=== PATIENT | male | born 1965 | race Caucasian/White ===

== ENCOUNTER 2019-09-17 10:44 | Outpatient (NON) | payer OTHER, SELFPAY ==
[2019-09-18 14:16] LABS: SARS-CoV-2 RNA PCR Negative
== END 2019-09-17 10:45 ==
PROVIDERS: PCP Family Medicine; Visit Provider Family Medicine
DX: R05 Cough (principal); R06.02 Shortness of breath; Z20.828 Contact with and (suspected) exposure to other viral communicable diseases
CPT/HCPCS: 87635; C9803; U0003

== ENCOUNTER 2019-09-19 14:45 | Outpatient (CLI) | payer OTHER, SELFPAY ==
--- NOTE | ~2019-09-19 | XR_ITS ---
EXAMINATION: XR chest 2V DATE: 09/19/2019 14:56 INDICATION: Cough. TECHNIQUE: Frontal and lateral views of the chest were obtained. COMPARISON: Chest 2 views 05/03/2019, CT abdomen and pelvis 07/15/2009 FINDINGS: The chest demonstrates clear lungs without pneumonia, pleural effusion, or pneumothorax. Th e heart size is normal. IMPRESSION: 1. No acute cardiopulmonary disease. Reviewed, dictated and finalized at location A.
== END 2019-09-19 14:46 | disposition home or self-care (01) ==
LOC: ANHIMG 14:47
PROVIDERS: PCP Family Medicine; Visit Provider Family Medicine
DX: R05 Cough (principal)
CPT/HCPCS: 71046

== ENCOUNTER 2020-03-17 14:41 | Outpatient (CLI) | payer OTHER, SELFPAY ==
--- NOTE | ~2020-03-17 | XR_ITS ---
EXAMINATION: XR chest 2V 03/17/2020 14:58 INDICATION: Cough PROCEDURE: 2 view chest COMPARISON: 09/19/2019 FINDINGS: The lungs are clear. The cardiomediastinal silhouette is within normal limits. There are no pleural effusions. There is no pneumothorax suspected. IMPRESSION: 1: NO ACUTE CARDIOPULMONARY DISEASE. Reviewed, dictated and finalized at location A. 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
== END 2020-03-17 14:42 | disposition home or self-care (01) ==
LOC: ANHIMG 14:44
PROVIDERS: PCP Family Medicine; Visit Provider Family Medicine
DX: R05 Cough (principal)
CPT/HCPCS: 71046

== ENCOUNTER 2020-04-20 15:52 | Outpatient (CLI) | payer OTHER, SELFPAY ==
--- NOTE | ~2020-04-20 | XR_ITS ---
XR chest 2V DATE: 04/20/2020 16:11 INDICATION: Shortness of breath and cough for one week TECHNIQUE: PA and lateral views COMPARISON: 03/13/2020 PA and lateral chest FINDINGS: Normal heart size. No hilar or mediastinal enlargement. No pulmonary infiltrate or consolidation, pleural effusion or pulmonary vascular congestion or pneumo thorax. IMPRESSION: No active cardiopulmonary disease Reviewed, dictated and finalized at location A. GER OF INVESTIGATIONS
== END 2020-04-20 15:53 | disposition home or self-care (01) ==
LOC: ANHIMG 15:55
PROVIDERS: PCP Family Medicine; Visit Provider Family Medicine
DX: R06.02 Shortness of breath (principal)
CPT/HCPCS: 71046

== ENCOUNTER 2020-04-21 06:50 | Outpatient (NON) | payer OTHER, SELFPAY ==
[2020-04-21 18:45] LABS: SARS-CoV-2 RNA PCR Negative
== END 2020-04-21 06:51 ==
LOC: ANHCOVIDDT 06:51
PROVIDERS: PCP Family Medicine; Visit Provider Family Medicine
DX: R68.89 Other general symptoms and signs (principal); Z20.828 Contact with and (suspected) exposure to other viral communicable diseases
CPT/HCPCS: 87635; C9803; U0003

== ENCOUNTER 2020-06-19 16:27 | Outpatient (CLI) | payer OTHER, SELFPAY ==
--- NOTE | ~2020-06-19 | XR_ITS ---
XR chest 2V DATE: 06/19/2020 16:46 INDICATION: Cough TECHNIQUE: PA and lateral views COMPARISON: 04/12/2020 PA and lateral chest FINDINGS: Normal heart size. No hilar or mediastinal enlargement. Prominent discoid scar or atelectasis, left lower lobe. No pulmonary infiltrate or consolidation, pleural effusion or pulmonary vascular congestion or pneumo thorax is noted otherwise. IMPRESSION: Discoid atelectasis or scarring, left lower lobe; otherwise no active cardiopulmonary dis ease Reviewed, dictated and finalized at location A. 911 DISPATCHER IMPRESSION: Discoid atelectasis or scarring, left lower lobe; otherwise no acti ve cardiopulmonary disease
== END 2020-06-19 16:28 | disposition home or self-care (01) ==
PROVIDERS: PCP Family Medicine; Visit Provider Physician Assistant
DX: R05 Cough (principal); R91.8 Other nonspecific abnormal finding of lung field
CPT/HCPCS: 71046

== ENCOUNTER → 2021-07-12 09:31 | Outpatient (CLI) | payer OTHER, SELFPAY ==
[2021-07-12 10:57] LABS: SARS-CoV-2 RNA PCR Positive
== END ==
PROVIDERS: PCP Family Medicine; Visit Provider Physician Assistant
DX: U07.1 COVID-19 (principal)
CPT/HCPCS: C9803; U0003; U0005

== ENCOUNTER 2021-07-21 16:56 | Observation (INO) | payer OTHER, SELFPAY ==
--- NOTE | ~2021-07-21 | CT_ITS ---
EXAMINATION: CTA chest PE protocol DATE: 07/21/2021 17:55 INDICATION: Cough and shortness of breath. TECHNIQUE: Computed tomography angiography (CTA) of the chest was performed with 100 mL Omnipaque-350 intravenous contrast timed to evaluate the pulmonary arteries. Coronal maximum intensity projection 3D-reconstructions were created by the technologist. Automated exposure control and iterative reconst ruction technique were employed. The dose-length product was 665.14 mGy-cm. COMPARISON: CT abdomen and pelvis 07/15/2009 FINDINGS: There is mild atelectasis bilaterally. There is material in the bronchi in the lower lobes that may be mucous plugging or aspirated material. No pleural effusion. The heart size is normal. No pericardial effusion. There is no pulmonary embolus. There is a small sliding hiatal hernia. There is a 2.0 cm cyst in left kidney. There is mild bilateral gynecomastia. There is mild thoracic spondylos is. There are old healed left rib fractures. IMPRESSION: 1. No pulmonary embolus. Sensitivity is mildly decreased by motion artifact. 2. Small sliding hiatal hernia. Reviewed, dictated and finalized at location A.
[2021-07-21 16:59] VITALS: BP 140/70; PULSE 101; RESP 20; TEMP 36.8; O2SAT 93
--- NOTE | 2021-07-21 17:05 | ED.SYNCOPE ---
HPI - Syncope General Chief Complaint: Syncope Stated Complaint: COVID positive with cough Time Seen by Provider: 07/21/21 17:02 Source: patient Mode of arrival: ambulatory Limitations: no limitations History of Present Illness HPI narrative: Patient is a 55-year-old male who presents the ED with report of syncope. Patient reports he has had shortness of breath and a productive cough with yellow sputum for the past 1 month. He made an appointment to see his primary care doctor, but had to be tested for Covid prior to the appointment. He did test positive for COVID-19 on 07/12, which our records confirm. He states the cough and shortness of breath have remained persistent throughout the last month. He states his shortness of breath seems to be somewhat better with movement as he is able to clear some of the congestion on his chest. Patient then reports he was sitting in a recliner yesterday and had a significant coughing episode. was nearby and reports that he had a syncopal episode and lost consciousness for approximately 10 seconds. She sternal rubbed him at that time and he came around. He did not fall or hit his head. Denies any other syncopal episodes, but states he has felt mildly dizzy when experiencing a coughing fit. 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 Denies any BLE pain or edema. No chest pain, back pain, fever, chills, sore throat, fatigue, abdominal pain, nausea, vomiting, headache, or current dizziness or lightheadedness. Patient did receive a Ganesh and Ganesh Covid vaccine in June 2020. Patient mentions he has a history of essential thrombocytosis. He does not take medication for this. Related Data Allergies Allergy/AdvReac Type Severity Reaction Status Date / Time No Known Allergies Allergy Verified 03/10/21 08:35 Review of Systems Review of Systems: CONSTITUTIONAL: Denies fatigue, fever, chills, or sweats. ENT: Reports congestion. Denies sore throat. CARDIOVASCULAR: Denies chest pain, palpitations, or BLE edema. RESPIRATORY: Reports productive cough and dyspnea. GASTROINTESTINAL: Denies abdominal pain, nausea, vomiting, or diarrhea. MUSCULOSKELETAL: Denies back pain, BLE pain, or myalgia. NEUROLOGIC: Reports syncope with LOC. Denies current lightheadedness/dizziness, head injury, headache, numbness, or weakness. All systems reviewed & are unremarkable except as noted in HPI and below PMFSH Past Medical History Medical History (Updated 07/22/21 @ 02:31 by Marilyn Gonsalez PA-C) COVID-19 Essential thrombocytosis External hemorrhoid Finger fracture, right GERD (gastroesophageal reflux disease) History of esophageal stricture History of rectal polyps HLD (hyperlipidemia) HTN (hypertension) Internal hemorrhoids Nasal fracture NICOLE (obstructive sleep apnea) Surgical History Surgical History Hx of tonsillectomy Family History Family History Father Hypertension Mother Carcinoma of colon Social History Social History Smoking status: Never smoker Second hand tobacco smoke exposure: No Alcohol intake: current Drinks per week: 2 Alcohol use details: rare Substance use: never Substance use type: does not use Gender identity (if verbalized by the patient): Male Sexual Orientation (if Verbalized by the Patient): Straight or Heterosexual Spiritual care concerns: No Exam Narrative: GENERAL: Well appearing, well-nourished, non-toxic, in no acute distress. HEAD: Normocephalic, atraumatic. THROAT: Pharynx clear, no exudate. MMs moist. NECK: Supple. No adenopathy, no masses. RESPIRATORY: Airway patent, respirations nonlabored. Diffuse wheezing in bilateral lung baron. Rhonchi in bases bilaterally. No tachypnea. CARDIOVASCULAR: Regular rate and rhythm without m
--- NOTE | 2021-07-21 17:06 | ECG_ITS ---
Measurements Intervals [place] Rate: 91 P: 76 NM: 198 QRS: 29 QRSD: 98 T: 55 QT: 347 QTc: 427 Interpretive Statements SINUS RHYTHM RSR' IN V1 AND V2 BORDERLINE ECG BASELINE ARTIFACT COMPARED TO ECG 04/08/2019 11:37:07 NO SIGNIFICANT CHANGES Electronically Signed On 07-22-2021 15:31:33 CDT by Dilip Bailey M.D.
[2021-07-21 17:27] LABS: Basophils Absolute Auto 0.2 K/mm3 (0.0-0.1); Basophils Percent Auto 1.7 % (0.2-1.2); Eosinophils Percent Auto 9.3 % (0-4.4); Hematocrit 43.4 % (42.0-52.0); Hemoglobin 14.7 g/dL (14.0-18.0); Immature Granulocyte Absolute 0.04 K/mm3 (0.00-0.031); Immature Granulocyte Percent A 0.4 % (0-0.5); Lymphocytes Absolute Auto 2.48 K/mm3 (0.9-3.2); Lymphocytes Percent Auto 23.8 % (18.3-44.2); Mean Corpuscular HGB Conc 33.9 g/dl (32-36); Mean Corpuscular Hemoglobin 31.8 pg (26-34); Mean Corpuscular Volume 93.9 fl (80-100); Mean Platelet Volume 9.3 fl (7.4-10.4); Monocytes Absolute Auto 0.7 K/mm3 (0.1-0.6); Monocytes Percent Auto 6.7 % (2.6-8.5); Neutrophils Percent Auto 58.1 % (45.5-73.1); Platelet Count Result 805 k/mm3 (150-375); Red Blood Count 4.62 M/mm3 (4.6-6.20); Red Cell Distribution Width 14.7 % (11.5-14.5); White Blood Count 10.4 K/mm3 (4.5-10.0)
[2021-07-21 17:28] VITALS: O2SAT 94
[2021-07-21 17:37] LABS: Alanine Aminotransferase 25 U/L (4-50); Albumin Level 4.7 g/dL (3.5-5.1); Alkaline Phosphatase 47 U/L (38-126); Anion Gap 9 mmol/L (8-16); Aspartate Amino Transferase 36 U/L (17-59); Bilirubin,Total 0.4 mg/dL (0.2-1.3); Blood Urea Nitrogen 22 mg/dL (9-20); Calcium 9.2 mg/dL (8.4-10.2); Carbon Dioxide 25 mmol/L (22-30); Chloride 104 mmol/L (98-107); Estimated CRCL calculation 95 ml/min; Estimated Glomerular Filt Rate > 60; Glucose 106 mg/dL (65-110); Potassium 4.1 mmol/L (3.4-5.0); Sodium 138 mmol/L (137-145)
--- NOTE | 2021-07-21 17:51 | PC.NURSE ---
pt in CT at this time.
[2021-07-21] MEDS: ALBUTEROL SULFATE (*SP) INHALER 2 PUFF INHALATION (17:58)
[2021-07-21 18:35] VITALS: BP 129/80; PULSE 91; RESP 13; O2SAT 96
--- NOTE | 2021-07-21 18:46 | PC.NURSE ---
walked pt w/ pulse ox per EDP Marilyn. pt's O2 saturation was at 90% on room air.
[2021-07-21 19:00] VITALS: BP 129/80; PULSE 85; RESP 19; O2SAT 93
--- NOTE | 2021-07-21 19:13 | PC.NURSE ---
Report received and care of pt assumed at this time.
--- NOTE | 2021-07-21 19:16 | PC.NURSE ---
Report received and care of pt assumed at this time.
[2021-07-21 20:55] VITALS: BP 122/70; PULSE 93; RESP 19; O2SAT 96
[2021-07-21 20:58] LABS: CRP < 0.5 mg/dL (<1.0); Lactate Dehydrogenase 518 U/L (313-618)
[2021-07-21 21:06] LABS: Troponin I < 0.012 ng/mL (0.000-0.034)
[2021-07-21 21:19] LABS: INR 1.1
[2021-07-21 21:20] LABS: Partial Thromboplastin Time 33.5 SECONDS (22.3-36.8)
--- NOTE | 2021-07-21 21:22 | PCRCNOTE ---
Dornase Alpha not given- past due treatment time. Start the following morning for deejay 12 hours.
[2021-07-21 21:45] VITALS: BP 136/79; PULSE 98; RESP 20; TEMP 36.2; O2SAT 92; BMI 31.6
--- NOTE | 2021-07-21 22:15 | ADMGEN ---
This patient, Derik Waldrop, was admitted to [facility] Surg Room 301-01. Patient/family oriented to hospital policies and general routines including ID bracelet, bed and alarms, visiting hours, pain management, procedures, bathroom and other care routines, personal items, smoking policy, room service/diet, and visiting hours. Information on how to activate the Rapid Response Team has been discussed. Patient/Family are encouraged to report perceived risks to care and to ask questions if they do not understand what they are told or what they should do.
[2021-07-22] VITALS: PULSE 94
[2021-07-22] MEDS: ALBUTEROL SULFATE (*SP) INHALER 4 PUFF INHALATION (01:56)
[2021-07-22 02:06] VITALS: O2SAT 97
[2021-07-22 04:00] VITALS: PULSE 90
[2021-07-22 06:00] VITALS: BP 125/77; PULSE 99; RESP 20; TEMP 36.1; O2SAT 91
--- NOTE | 2021-07-22 06:52 | PC.NURSE ---
07/22/21 0648 pt completed a 6 minute walking pulse ox 91% room air. pt denies sob.
--- NOTE | 2021-07-22 07:05 | PM.SD2 ---
Same Day Admit/Disch: HPI History of Present Illness Chief complaint: Hypoxia, COVID-19 positive, Syncope Narrative: Derik Waldrop is a 55 year old male with a past medical history of childhood asthma, hypertension, and essential thrombocytosis who presented to the ER from home due to persistent cough with COVID-19. Patient reports that he has been ill since May. He has had a cough productive of yellow sputum. His cough has been persistent and is been associated with wheezing. He reports that he did have a history of childhood asthma and it seems that any time he gets an upper respiratory tract infection he will have frequent coughing and wheezing. He has never had pulmonary function testing. He reports that he had such a coughing fit on the that he actually passed out for about 10 seconds. He denies any chest pain or palpitations. He denies any dyspnea on exertion but does have increased coughing with exertion. He reports that shortness of breath is actually better with exertion as he is able to clear some of his secretions. He does have some episodes of dizziness when he has coughing fits. 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 He denies any lower extremity edema or calf pain. He had a CTA in the ER that was negative for pulmonary embolism. He came to the ER because any time he gets episodes of coughing like this he usually needs steroids to help relieve the symptoms. He reports that since he has received Decadron in the ER his symptoms have improved markedly. His cough has decreased significantly. He is feeling much better and is eager to go home. the patient's oxygen saturations on room air were 97% at rest and 91% after 6 minute walk. The patient did not have any significant coughing with ambulation. The patient had received Ganesh & Ganesh vaccine June 2020. [facility] [place] Past Medical History Medical History (Updated 07/22/21 @ 07:09 by Amanda Sears DO) COVID-19 Essential thrombocytosis External hemorrhoid Finger fracture, right GERD (gastroesophageal reflux disease) History of esophageal stricture History of rectal polyps HLD (hyperlipidemia) HTN (hypertension) Internal hemorrhoids Nasal fracture NICOLE (obstructive sleep apnea) Surgical History Surgical History Hx of tonsillectomy Family History Family History (Updated 07/22/21 @ 07:28 by Amanda Sears DO) Father Hypertension Acute myocardial infarction at age greater than 70 Mother Carcinoma of colon Social History Social History (Updated 07/22/21 @ 07:33 by Amanda Sears DO) Social History: The patient lives in [place] with his of 29 years. he is retired from the [employer] after 20 years. 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 Smoking status: Never smoker Second hand tobacco smoke exposure: No Alcohol intake: current Drinks per week: 2 Alcohol use details: rare Substance use: never Substance use type: does not use Gender identity (if verbalized by the patient): Male Sexual Orientation (if Verbalized by the Patient): Straight or Heterosexual Spiritual care concerns: No Same Day Admit/Disch: Med Pre-admit Medications Home Medications Medication Instructions Recorded Confirmed Type pantoprazole 40 mg tablet,delayed 40 mg PO QAM #90 tablet 08/03/20 07/21/21 Rx release simvastatin 20 mg tablet 20 mg PO DAILY #90 tablet 02/01/21 07/21/21 Rx lisinopril 30 mg tablet See Rx Instructions .ROUTE 05/18/21 07/21/21 Rx .COMPLEX #90 tablet benzonatate 100 mg capsule 100 mg PO TID PRN 10 Days #30 cap 07/12/21 07/21/21 Rx ipratropium 0.5 mg-albuterol 3 mg 3 ml INHALATION Q4H PRN #90 ml 07/16/21 07/21/21 Rx (2.5 mg base)/3 mL nebulization soln Exam Narrative: PHYSICAL EXAM: WEIGHT 102.9 kg BMI 31.6 General: no acute distress, overweight HEENT:
[2021-07-22] MEDS: PANTOPRAZOLE 40 MG TABLET PO (08:01)
[2021-07-22] MEDS: lisinopriL 10 MG TABLET 30 MG BY MOUTH (08:03)
[2021-07-22] MEDS: AZITHROMYCIN 250 MG TABLET 500 MG PO (08:03)
[2021-07-22] MEDS: SIMVASTATIN 20 MG TABLET PO (08:04)
[2021-07-22 08:05] VITALS: BP 117/76; PULSE 90; O2SAT 93
== END 2021-07-22 09:05 | disposition home or self-care (01) ==
LOC: ANHED 17:27 → ANH3MEDSUR 21:01
PROVIDERS: Emergency Medicine; Physician Assistant; Admitting Provider Internal Medicine; Emergency Provider Family Medicine; PCP Family Medicine; Visit Provider Internal Medicine
DX: U07.1 COVID-19 (principal); J40 Bronchitis, not specified as acute or chronic; R55 Syncope and collapse; R09.02 Hypoxemia; D47.3 Essential (hemorrhagic) thrombocythemia; E78.5 Hyperlipidemia, unspecified; G47.33 Obstructive sleep apnea (adult) (pediatric); I10 Essential (primary) hypertension; K21.9 Gastro-esophageal reflux disease without esophagitis
CPT/HCPCS: 36415; 71275; 80053; 82728; 83615; 84484; 85025; 85610; 85730; 86140; 93005; 94640; 96374; 99285; A9270; G0378; J1100; Q9967

== ENCOUNTER 2022-11-23 00:53 | Day surgery (SDC) | payer OTHER, SELFPAY ==
[2022-11-15 08:57] VITALS: BMI 30.7
--- NOTE | 2022-11-22 16:55 | PM.HPGS ---
History of Present Illness History of Present Illness Consent: Risks, benefits, and alternatives have been discussed and questions answered. Patient agrees to proceed with procedure. Chief complaint: family hx colon ca,esophageal obstruction Narrative: Derik Waldrop is a 57 year old male who has been having dysphagia for swallowing solid food. His last EGD was 5 years ago. At that time he had a high-grade stricture that could be dilated up to 16.5 mm. He also has a family history of colon cancer in that his mother had colon cancer. His last colonoscopy was 6 years ago. Review of Systems Review of Systems: All systems reviewed & are unremarkable except as noted in HPI and below PMFSH Past Medical History Medical History COVID-19 Essential thrombocytosis External hemorrhoid Finger fracture, right GERD (gastroesophageal reflux disease) History of esophageal stricture History of rectal polyps HLD (hyperlipidemia) HTN (hypertension) Internal hemorrhoids Nasal fracture NICOLE (obstructive sleep apnea) Surgical History Surgical History Hx of tonsillectomy Family History Family History Father Hypertension Acute myocardial infarction at age greater than 70 Mother Carcinoma of colon Social History Social History Social History: The patient lives in [place] with his of 29 years. he is retired from the [employer] after 20 years. 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 Smoking status: Never smoker Second hand tobacco smoke exposure: No Alcohol intake: current Drinks per week: 2 Alcohol use details: rare Substance use: never Substance use type: does not use Living arrangements: with family Occupation/Education: occupation Gender identity (if verbalized by the patient): Male Sexual Orientation (if Verbalized by the Patient): Straight or Heterosexual Spiritual care concerns: No Meds Home Medications and Allergies Home Medications Medication Instructions Recorded Confirmed Type pantoprazole 40 mg tablet,delayed 40 mg PO QAM #90 tabs 07/21/22 11/15/22 Rx release simvastatin 20 mg tablet 20 mg PO DAILY #90 tabs 07/21/22 11/15/22 Rx albuterol sulfate 90 mcg/actuation 2 inh inhalation Q4H PRN shortness 10/12/22 11/15/22 Rx breath activated powder inhaler of breath or wheezing #90 ea lisinopril 30 mg tablet See Rx Instructions .Route 11/09/22 11/15/22 Rx .COMPLEX #90 tabs Allergies Allergy/AdvReac Type Severity Reaction Status Date / Time No Known Allergies Allergy Verified 11/23/22 11:07 Exam Const: General: alert Orientation/consciousness: patient oriented x3 Resp: Auscultation: clear to auscultation bilaterally Cardio: Rhythm: regular rhythm GI: GI Palp: Yes Soft to palpation and No Tenderness to palpation present (GI) Neuro: General: patient oriented x3 Assessment and Plan Assessment and plan (1) Dysphagia: Code(s): R13.10 - Dysphagia, unspecified Status: Acute Assessment and Plan: EGD with possible biopsy or dilatation or cautery. (2) Colon cancer screening: Code(s): Z12.11 - Encounter for screening for malignant neoplasm of colon Status: Acute Assessment and Plan: Colonoscopy with possible biopsy or polypectomy or cautery or injection of substances.
[2022-11-23 11:07] VITALS: BP 123/77; PULSE 91; RESP 18; TEMP 36.8; O2SAT 96
[2022-11-23] MEDS: LACTATED RINGERS 1,000 ML 150 ML IV CONT (11:15)
--- NOTE | 2022-11-23 11:38 | WPDANESEPPF ---
Anes - Initial Pre Proc Eval Procedure: Operation Date: 11/23/22 12:30 Proposed Procedures p Esophagogastroduodenoscopy & Colonoscopy - Deep Pennington MD Date/Time: 11/23/22 11:38 Surgeon: Deep Pennington MD Pre Op Diagnosis: family hx colon ca,esophageal obstruction Patient Data Age: 57 Gender: M Height: 1.8 m Weight: 103.6 kg Last Vital Signs Temp 98.3 F 11/23/22 11:07 Pulse 91 11/23/22 11:07 Resp 18 11/23/22 11:07 BP 123/77 11/23/22 11:07 Pulse Ox 96 11/23/22 11:07 O2 Del Method Room Air 11/23/22 11:07 Allergies Allergy/AdvReac Type Severity Reaction Status Date / Time No Known Allergies Allergy Verified 11/23/22 11:07 Home Medications Medication Instructions Recorded Confirmed Type pantoprazole 40 mg tablet,delayed 40 mg PO QAM #90 tabs 07/21/22 11/15/22 Rx release simvastatin 20 mg tablet 20 mg PO DAILY #90 tabs 07/21/22 11/15/22 Rx albuterol sulfate 90 mcg/actuation 2 inh inhalation Q4H PRN shortness 10/12/22 11/15/22 Rx breath activated powder inhaler of breath or wheezing #90 ea lisinopril 30 mg tablet See Rx Instructions .Route 11/09/22 11/15/22 Rx .COMPLEX #90 tabs Patient hx anesthesia problems: none Family hx anesthesia problems: none Results Review: All pre-operative results and documents have been reviewed as part of the pre-operative evaluation. [facility] Past Medical History Medical History (Updated 11/22/22 @ 16:57 by Deep Pennington MD) COVID-19 Essential thrombocytosis External hemorrhoid Finger fracture, right GERD (gastroesophageal reflux disease) History of esophageal stricture History of rectal polyps HLD (hyperlipidemia) HTN (hypertension) Internal hemorrhoids Nasal fracture NICOLE (obstructive sleep apnea) Surgical History Surgical History Hx of tonsillectomy Family History Family History Father Hypertension Acute myocardial infarction at age greater than 70 Mother Carcinoma of colon Social History Social History Social History: The patient lives in [place] with his of 29 years. he is retired from the [employer] after 20 years. 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 Smoking status: Never smoker Second hand tobacco smoke exposure: No Alcohol intake: current Drinks per week: 2 Alcohol use details: rare Substance use: never Substance use type: does not use Living arrangements: with family Occupation/Education: occupation Gender identity (if verbalized by the patient): Male Sexual Orientation (if Verbalized by the Patient): Straight or Heterosexual Spiritual care concerns: No Anes - Eval Final PreProcedure Day of Procedure 11/23/22 11:38 Patient weight: obese Heart: regular rate and rhythm Lungs: clear to auscultation Airway: Mallampati scale class II Neurological: alert and oriented Last oral intake: >/= 8 hours ASA classification: III Emergent: no Anesthetic plan: proceed Anesthesia type and monitoring: general GIVS and standard monitoring Results Review: All pre-operative results and documents have been reviewed as part of the pre-operative evaluation. Informed Consent: The patient's anesthetic plan and its attendant risks and benefits were discussed with the patient/family/POA. Questions were solicited and answers provided to the satisfaction of the patient/family/POA.
--- NOTE | 2022-11-23 12:57 | SUR.OPER ---
EGD: [id number] COLON: [id number]
[2022-11-23] MEDS: SIMETHICONE ORAL SUSPENSION 20 MG/0.3 ML 30 ML BOTTLE 0.6 ML IRRIGATION (13:12)
[2022-11-23 13:25] VITALS: BP 110/64; PULSE 94; RESP 26; O2SAT 97
[2022-11-23 13:35] VITALS: BP 107/74; PULSE 83; RESP 20; O2SAT 95
[2022-11-23 13:45] VITALS: BP 112/71; PULSE 80; RESP 19; O2SAT 96
== END 2022-11-23 13:49 | disposition home or self-care (01) ==
PROVIDERS: PCP Family Medicine; Visit Provider Internal Medicine Gastroenterology
PROC: 0DJ08ZZ Inspection of Upper Intestinal Tract, Via Natural or Artificial Opening Endoscopic (ICD-10-PCS; CPT 43235; principal; 2022-11-23 12:30)
DX: Z12.11 Encounter for screening for malignant neoplasm of colon (principal); K57.30 Diverticulosis of large intestine without perforation or abscess without bleeding; D12.5 Benign neoplasm of sigmoid colon; Z80.0 Family history of malignant neoplasm of digestive organs; I10 Essential (primary) hypertension; E78.5 Hyperlipidemia, unspecified; G47.33 Obstructive sleep apnea (adult) (pediatric); E66.9 Obesity, unspecified; Z68.31 Body mass index [BMI] 31.0-31.9, adult; Z79.51 Long term (current) use of inhaled steroids
CPT/HCPCS: 45385; 43249; 88305; C1726; J2704; J7120

== ENCOUNTER 2023-01-30 01:04 | Inpatient (IN) | payer OTHER, SELFPAY ==
[2023-01-30] VITALS (73 sets, daily range): BP systolic 83–148; BP diastolic 50–89; PULSE 58–85; RESP 7–22; TEMP 36.5–36.9; O2SAT 92–100; BMI 34.0
--- NOTE | ~2023-01-30 | XR_ITS ---
EXAMINATION: XR chest 2V DATE: 01/30/2023 01:22 INDICATION: Left chest pain. TECHNIQUE: Frontal and lateral views of the chest were obtained. COMPARISON: Chest 2 views 06/19/2020, chest CT 07/21/2021 FINDINGS: There is mild atelectasis at the lung bases. No pleural effusion or pneumothorax. The heart size is normal. IMPRESSION: 1. Mild atelectasis at the lung bases. Reviewed, dictated and finalized at location A.
--- NOTE | 2023-01-30 01:05 | ECG_ITS ---
Measurements Intervals [place] Rate: 73 P: 46 [place]: 205 QRS: 21 QRSD: 151 T: 13 QT: 407 QTc: 450 Interpretive Statements SINUS RHYTHM INDETERMINATE AXIS RIGHT BUNDLE BRANCH BLOCK [120+ ms QRS DURATION, UPRIGHT V1, 40+ ms S IN I/aVL/V4/V5/V6] ABNORMAL ECG COMPARED TO ECG 07/21/2021 17:11:01 RIGHT BUNDLE-BRANCH BLOCK NOW PRESENT Electronically Signed On 01-30-2023 9:29:39 CDT by Johny Jenkins M.D.
[2023-01-30 01:30] LABS: Basophils Absolute Auto 0.2 K/mm3 (0.0-0.1); Basophils Percent Auto 1.3 % (0.2-1.2); Eosinophils Absolute Auto 0.9 K/mm3 (0-0.3); Hematocrit 45.5 % (42.0-52.0); Hemoglobin 14.9 g/dL (14.0-18.0); Immature Granulocyte Absolute 0.11 K/mm3 (0.00-0.031); Immature Granulocyte Percent A 0.9 % (0-0.5); Lymphocytes Absolute Auto 1.91 K/mm3 (0.9-3.2); Mean Corpuscular HGB Conc 32.7 g/dl (32-36); Mean Corpuscular Hemoglobin 30.7 pg (26-34); Mean Corpuscular Volume 93.8 fl (80-100); Mean Platelet Volume 9.1 fl (7.4-10.4); Monocytes Absolute Auto 1.1 K/mm3 (0.1-0.6); Monocytes Percent Auto 8.4 % (2.6-8.5); Neutrophils Absolute Auto 8.6 K/mm3 (1.3-6.7); Neutrophils Percent Auto 67.4 % (45.5-73.1); Platelet Count Result 819 k/mm3 (150-375); Red Blood Count 4.85 M/mm3 (4.6-6.20); Red Cell Distribution Width 15.9 % (11.5-14.5); White Blood Count 12.7 K/mm3 (4.5-10.0)
[2023-01-30] MEDS: ASPIRIN 81 MG CHEWABLE TABLET 324 MG PO (01:33)
--- NOTE | 2023-01-30 01:39 | ED.CHESTPAIN ---
HPI - Chest Pain General Chief Complaint: Chest Pain Stated Complaint: CP, radiating to L arm Time Seen by Provider: 01/30/23 01:07 History of Present Illness HPI narrative: 57-year-old male with history of hypertension presented to ED for evaluation of chest pain that started 3 hours prior to arrival. Patient describes substernal chest pain that radiated to his shoulder and left arm. Patient has no prior history of MT patient did have a stress test about 5 to 7 years ago. 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 Related Data Allergies Allergy/AdvReac Type Severity Reaction Status Date / Time No Known Allergies Allergy Verified 01/30/23 01:32 Review of Systems Review of Systems: All systems reviewed & are unremarkable except as noted in HPI and below PMFSH Past Medical History Medical History COVID-19 Essential thrombocytosis External hemorrhoid Finger fracture, right GERD (gastroesophageal reflux disease) History of esophageal stricture History of rectal polyps HLD (hyperlipidemia) HTN (hypertension) Internal hemorrhoids Nasal fracture NICOLE (obstructive sleep apnea) Surgical History Surgical History Hx of tonsillectomy Family History Family History Father Hypertension Acute myocardial infarction at age greater than 70 Mother Carcinoma of colon Social History Social History Social History: The patient lives in [place] with his of 29 years. he is retired from the [employer] after 20 years. 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 Smoking status: Never smoker Second hand tobacco smoke exposure: No Alcohol intake: current Drinks per week: 2 Alcohol use details: rare Substance use: never Substance use type: does not use Living arrangements: with family Occupation/Education: occupation Gender identity (if verbalized by the patient): Male Sexual Orientation (if Verbalized by the Patient): Straight or Heterosexual Spiritual care concerns: No Exam Narrative: APPEARANCE: Uncomfortable appearing HEAD: normocephalic, atraumatic. EYES: PERRLA/EOMI, conjunctivae clear. NOSE: Normal no drainage EARS:TMS clear with good light reflex. THROAT: Pharynx clear, no exudate. NECK: Supple. No adenopathy, no masses. RESPIRATORY: Airway patent, respirations nonlabored. Clear to auscultation bilaterally, no rales, rhonchi, wheezing. CARDIOVASCULAR: Regular rate and rhythm without murmurs rubs or gallops. ABDOMINAL: Soft, nontender, nondistended, normal bowel sounds MUSCULOSKELETAL: Moves all extremities. Strength/ROM intact, No edema, No calf tenderness. NEURO: Alert. Cranial nerves II through XII intact. Good gait. Good coordination SKIN: Warm, dry. Normal Color Course Course Emergency Course: 57-year-old male presented ED for evaluation of substernal chest pain that radiated to his left arm. EKG showed a new right bundle but no ST changes concerning for STEMI. Patient does take lisinopril and simvastatin. Patient was treated with aspirin, p.o. metoprolol, Nitropaste. On reevaluation patient's pain was resolved. Patient did have an elevated troponin. Case was discussed with Dr. Gibbons per cardiology and recommended heparin. Patient was admitted as an NSTEMI. Case was discussed with the hospitalist admitted to the IMU. Patient was updated on the results of the work-up and concern for an NSTEMI. Patient was advised that he may be having a cardiac cath today. All questions and concerns were addressed and patient was well-appearing at time of admission. Vital Signs Vital signs: Vital Signs Temperature 98.2 F 01/30/23 01:09 Pulse Rate 73 01/30/23 01:09 Respiratory Rate 12 01/30/23 01:09 Blood Pressure 148/89 H 10/0
[2023-01-30 01:42] LABS: Prothrombin Time 13.7 Seconds (11.1-14.7)
[2023-01-30 01:43] LABS: Partial Thromboplastin Time 34.6 SECONDS (22.3-36.8)
[2023-01-30 01:45] LABS: Alanine Aminotransferase 28 U/L (6-50); Albumin Level 4.3 g/dL (3.5-5.1); Alkaline Phosphatase 33 U/L (38-126); Anion Gap 6 mmol/L (8-16); Aspartate Amino Transferase 40 U/L (17-59); Bilirubin,Total 0.7 mg/dL (0.2-1.3); Blood Urea Nitrogen 18 mg/dL (9-20); Calcium 8.7 mg/dL (8.4-10.2); Carbon Dioxide 26 mmol/L (22-30); Chloride 101 mmol/L (98-107); Estimated CRCL calculation 83 ml/min; Estimated Glomerular Filt Rate > 60; Glucose 129 mg/dL (65-110); Lipase 87 U/L (23-300); Potassium 3.9 mmol/L (3.4-5.0); Sodium 133 mmol/L (137-145)
[2023-01-30 02:02] LABS: Troponin I 0.167 ng/mL (0.000-0.034)
[2023-01-30] MEDS: NITROGLYCERIN OINTMENT 1 INCH DOSE TRANSDERM (02:22)
[2023-01-30] MEDS: HEPARIN SODIUM 5,000 UNITS/ML VIAL 4000 UNITS IV PUSH (02:29)
[2023-01-30] MEDS: NITROGLYCERIN SL 0.4 MG TABLET SUBLINGUAL (02:30)
--- NOTE | 2023-01-30 02:40 | PC.NURSE ---
Per EDP Dr. Stanley [place] another 0.4 tablet of nitroglycerin sublingual was given to patient for chest pain.
[2023-01-30] MEDS: HEPARIN SOD/D5W 100 UNITS/ML 25,000 UNITS/250 ML BAG 10 UNITS IV CONT (02:59)
--- NOTE | 2023-01-30 04:33 | PM.IMHP ---
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 He got concerned and developed chest pain intensity 5/10 located in the anterior chest radiating to the left upper arm up to his elbow, no association with any sweating or palpitations. Patient got concerned and was brought to the ER for evaluation. Workup was done which showed elevated cardiac enzymes and non ST elevated IN. he had a stress test 5-7 years ago and gives significant family medical history of CAD. Cardiology was consulted and he was started on IV heparin drip. He is being admitted to IMU for further management, close monitoring, cardiology evaluation and further workup. Review of Systems Review of Systems: he denies any palpitation, sweating, fever rigor chills, nausea vomiting, dizziness, loss of consciousness All systems reviewed & are unremarkable except as noted in HPI and below PMFSH Past Medical History Medical History COVID-19 Essential thrombocytosis External hemorrhoid Finger fracture, right GERD (gastroesophageal reflux disease) History of esophageal stricture History of rectal polyps HLD (hyperlipidemia) HTN (hypertension) Internal hemorrhoids Nasal fracture NICOLE (obstructive sleep apnea) Surgical History Surgical History Hx of tonsillectomy Family History Family History Father Hypertension Acute myocardial infarction at age greater than 70 Mother Carcinoma of colon Social History Social History Social History: The patient lives in [place] with his of 29 years. he is retired from the [employer] after 20 years. 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 Smoking status: Never smoker Second hand tobacco smoke exposure: No Alcohol intake: current Drinks per week: 2 Alcohol use details: rare Substance use: never Substance use type: does not use Living arrangements: with family Occupation/Education: occupation Gender identity (if verbalized by the patient): Male Sexual Orientation (if Verbalized by the Patient): Straight or Heterosexual Spiritual care concerns: No Meds Home Medications and Allergies Home Medications Medication Instructions Recorded Confirmed Type pantoprazole 40 mg tablet,delayed 40 mg PO QAM #90 tabs 07/21/22 11/15/22 Rx release simvastatin 20 mg tablet 20 mg PO DAILY #90 tabs 07/21/22 11/15/22 Rx albuterol sulfate 90 mcg/actuation 2 inh inhalation Q4H PRN shortness 10/12/22 11/15/22 Rx breath activated powder inhaler of breath or wheezing #90 ea lisinopril 30 mg tablet See Rx Instructions .Route 11/09/22 11/15/22 Rx .COMPLEX #90 tabs Allergies Allergy/AdvReac Type Severity Reaction Status Date / Time No Known Allergies Allergy Verified 01/30/23 01:32 Vital Signs Vital Signs - 24 hr 01/30/23 01:09 01/30/23 01:31 01/30/23 01:31 Temperature 36.8 C Pulse Rate 73 72 Respiratory Rate 12 Blood Pressure 148/89 H Pulse Oximetry 95 95 Oxygen Delivery Room Air Room Air 01/30/23 02:31 01/30/23 02:32 01/30/23 02:34 Temperature Pulse Rate 79 78 85 Respiratory Rate 17 12 12 Blood Pressure 131/71 130/76 132/57 L Pulse Oximetry 95 94 95 Oxygen Delivery 01/30/23 02:40 01/30/23 02:43 01/30/23 02:45 Temperature Pulse Rate 82 82 74 Respiratory Rate 13 13 10 L Blood Pressure 110/68 102/62 95/56 L Pulse Oximetry 94 94 95 Oxygen Delivery 01/30/23 02:38 01/30/23 03:05 01/30/23 03:10 Temperature Pulse Rate 84 74 74 Respiratory Rate 17 10 L 22 H
[2023-01-30 05:09] LABS: Troponin I 0.628 ng/mL (0.000-0.034)
[2023-01-30] MEDS: ATORVASTATIN 40 MG TABLET PO (05:32)
--- NOTE | 2023-01-30 07:58 | PM.CNCAR ---
Assessment and Plan Assessment and plan (1) NSTEMI (non-ST elevated myocardial infarction): Code(s): I21.4 - Non-ST elevation (NSTEMI) myocardial infarction Status: Acute Assessment and Plan: Troponin trending up 0.628. CP relieved with NTG. Started heparin drip, started Metoprolol and aspirin. On Simvastatin. Obtain echo. Consult [facility] for [facility]. Risks/benefits/alternative to LHC discuss with patient and he is agreeable to it. (2) Pure hypercholesterolemia: Code(s): E78.00 - Pure hypercholesterolemia, unspecified Status: Acute Assessment and Plan: On Simvastatin. (3) Essential hypertension: Code(s): I10 - Essential (primary) hypertension Status: Acute Assessment and Plan: Stable. History of Present Illness History of Present Illness Consult date/time: 01/30/23 07:58 Reason For Visit: Chest pain, NSTEMI Narrative: 57 yr old man presented to ER with chest pain. He has a history of hypertension, dyslipidemia, NICOLE, and essential thrombocytosis familty history of grandparents dying from OR in their 40's and his father from OR at age 70. Reports he was watching tv last night at 9:30pm when he had sudden onset sharp 4/10 chest pain radiating to left shoulder, scapula and arm. NTG in ED resolved chest pain. No other symptoms. He normally can walk miles without any problems. Denies sob, orthopnea, PND, edema, dizziness, palpitations. Review of Systems Review of Systems: All systems reviewed & are unremarkable except as noted in HPI and below Constitutional: Constitutional: Reports as per HPI, Denies chills and Denies fever(s) Cardiovascular: Cardiovascular: Reports as per HPI, Reports chest pain, Denies irregular heart rhythm, Denies leg edema and Denies dyspnea on exertion Respiratory: Respiratory: Reports as per HPI and Denies dyspnea Gastrointestinal: Gastrointestinal: Reports as per HPI and Denies abdominal pain Genitourinary: Genitourinary: Reports as per HPI and Denies dysuria Musculoskeletal: Musculoskeletal: Reports as per HPI Neurologic: Reports as per HPI, Denies dizziness and Denies syncope [facility] Past Medical History Medical History COVID-19 Essential thrombocytosis External hemorrhoid Finger fracture, right GERD (gastroesophageal reflux disease) History of esophageal stricture History of rectal polyps HLD (hyperlipidemia) HTN (hypertension) Internal hemorrhoids Nasal fracture NICOLE (obstructive sleep apnea) Surgical History Surgical History Hx of tonsillectomy Family History Family History Father Hypertension Acute myocardial infarction at age greater than 70 Mother Carcinoma of colon Social History Social History Social History: The patient lives in [place] with his of 29 years. he is retired from the [employer] after 20 years. 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 Smoking status: Never smoker Second hand tobacco smoke exposure: No Alcohol intake: current Drinks per week: 2 Alcohol use details: rare Substance use: never Substance use type: does not use Living arrangements: with family Occupation/Education: occupation Gender identity (if verbalized by the patient): Male Sexual Orientation (if Verbalized by the Patient): Straight or Heterosexual Spiritual care concerns: No Meds Home Medications and Allergies Home Medications Medication Instructions Recorded Confirmed Type pantoprazole 40 mg tablet,delayed 40 mg PO QAM #90 tabs 07/21/22 11/15/22 Rx release simvastatin 20 mg tablet 20 mg PO DAILY #90 tabs 07/21/22 11/15/22 Rx albuterol sulfate 90 mcg/actuation 2 inh inhalation Q4H PRN shortness 10/12/22 11/15/22 Rx breath activated powder inhaler of breath or wheezing #90 ea li
[2023-01-30] MEDS: ASPIRIN 81 MG CHEWABLE TABLET PO (08:12)
[2023-01-30 08:26] LABS: INR 1.1; Prothrombin Time 14.6 Seconds (11.1-14.7)
[2023-01-30 08:27] LABS: Partial Thromboplastin Time 39.2 SECONDS (22.3-36.8)
--- NOTE | 2023-01-30 09:07 | PM.IMPN ---
Progress Note: A&P Assessment and Plan (1) NSTEMI (non-ST elevated myocardial infarction): Code(s): I21.4 - Non-ST elevation (NSTEMI) myocardial infarction Status: Acute Assessment and Plan: Patient presented with chest pain with radiation to the left shoulder and left arm, diagnosed with NSTEMI will start heparin infusion.? He was taken to the cardiac wharf labourer for angiogram which revealed a filling defect compatible with thrombus in the proximal LAD, status post extraction thrombectomy with penumbra device.? Patient was given a loading dose of aspirin along with Brilinta 180 mg in the wharf labourer.? He was started on intracoronary bolus of Integrilin and intravenous infusion of Integrilin.? Patient was transferred to the ICU for Integrilin infusion -EF was 50-55% -continue aspirin, statin, metoprolol, Brilinta (2) Pure hypercholesterolemia: Code(s): E78.00 - Pure hypercholesterolemia, unspecified Status: Acute (3) Essential hypertension: Code(s): I10 - Essential (primary) hypertension Status: Acute Assessment and Plan: Blood pressure reviewed 01/30 (4) NICOLE (obstructive sleep apnea): Code(s): G47.33 - Obstructive sleep apnea (adult) (pediatric) Status: Acute Plan DVT prophylaxis with Integrilin GI prophylaxis with Protonix Code status full code Subjective Date/time seen: 01/30/23 09:07 Interval history: 57-year-old male with history of hypertension, hyperlipidemia, GERD presenting with chest pain and currently being treated for possible NSTEMI. No overnight events noted. No chest pain or shortness of breath. No nausea, vomiting or diarrhea. No fevers or chills. Review of Systems Review of Systems: 12 point review of systems was assessed and was negative except as noted in the HPI Exam Narrative: General: No acute distress, alert and oriented per baseline HEENT: Atraumatic, normocephalic, mucous membranes moist CV: Regular rate and rhythm, S1, S2 Lungs: Clear to auscultation bilaterally, no rales or crackles noted, no wheezes, good air entry Abdomen: Soft, nontender, nondistended Extremities: Normal to inspection Skin: No rashes noted, no lesions or wounds seen Psych: Euthymic, normal affect Objective Data Vital Signs Vital Signs: Vital Signs - 24 hr 01/30/23 01:09 01/30/23 01:31 01/30/23 01:31 Temperature 98.2 F Pulse Rate 73 72 Respiratory Rate 12 Blood Pressure 148/89 H Pulse Oximetry 95 95 Oxygen Delivery Room Air Room Air 01/30/23 02:31 01/30/23 02:32 01/30/23 02:34 Temperature Pulse Rate 79 78 85 Respiratory Rate 17 12 12 Blood Pressure 131/71 130/76 132/57 L Pulse Oximetry 95 94 95 Oxygen Delivery 01/30/23 02:40 01/30/23 02:43 01/30/23 02:45 Temperature Pulse Rate 82 82 74 Respiratory Rate 13 13 10 L Blood Pressure 110/68 102/62 95/56 L Pulse Oximetry 94 94 95 Oxygen Delivery 01/30/23 02:38 01/30/23 03:05 01/30/23 03:10 Temperature Pulse Rate 84 74 74 Respiratory Rate 17 10 L 22 H Blood Pressure 117/63 Pulse Oximetry 94 96 94 Oxygen Delivery 01/30/23 03:18 01/30/23 03:21 01/30/23 03:25 Temperature Pulse Rate 76 76 72 Respiratory Rate 13 14 12 Blood Pressure 83/54 L 105/63 Pulse Oximetry 96 96 96 Oxygen Delivery 01/30/23 03:33 01/30/23 03:26 01/30/23 03:30 Temperature Pulse Rate 73 74 69 Respiratory Rate 11 L 18 13 Blood Pressure 102/61 Pulse Oximetry 96 94 94 Oxygen Delivery 01/30/23 03:31 01/30/23 03:34 01/30/23 03:35 Temperature Pulse Rate 73 76 73 Respiratory Rate 16 14 7 L Blood Pressure 109/53 L 102/61 96/60 L Pulse Oximetry 95 97 96 Oxygen Delivery 01/30/23 03:40 01/30/23 03:45 01/30/23 03:46 Temperature Pulse Rate 77 68 72 Respiratory Rate 17 15 15 Blood Pressure 116/50 L 112/58 L Pulse Oximetry 94 95 93 Oxygen Delivery 01/30/23 03:51 01/30/23 04:00 01/30/23 04:01 Temperature
--- NOTE | 2023-01-30 09:35 | PC.NURSE ---
Called pharm for PO medication ordered. Silvestre states he will send it.
[2023-01-30] MEDS: METOPROLOL TARTRATE 12.5 MG TABLET PO ×2 (09:43→20:13)
[2023-01-30 09:49] LABS: INR 1.1; Prothrombin Time 14.1 Seconds (11.1-14.7)
[2023-01-30 09:50] LABS: Partial Thromboplastin Time 40.5 SECONDS (22.3-36.8)
--- NOTE | 2023-01-30 10:20 | WPDMODSED ---
Moderate Sedation Note-Pt Data Patient Data Diagnosis: acute coronary syndrome/ non ST elevation NE Present Complaint: chest pain Procedure to be performed/Plan: left heart catheterization/possible PCI Allergies Allergy/AdvReac Type Severity Reaction Status Date / Time No Known Allergies Allergy Verified 01/30/23 01:32 Home Medications Medication Instructions Recorded Confirmed Type pantoprazole 40 mg tablet,delayed 40 mg PO QAM #90 tabs 07/21/22 11/15/22 Rx release simvastatin 20 mg tablet 20 mg PO DAILY #90 tabs 07/21/22 11/15/22 Rx albuterol sulfate 90 mcg/actuation 2 inh inhalation Q4H PRN shortness 10/12/22 11/15/22 Rx breath activated powder inhaler of breath or wheezing #90 ea lisinopril 30 mg tablet See Rx Instructions .Route 11/09/22 11/15/22 Rx .COMPLEX #90 tabs Current Medications: Active Medications Acetaminophen (Acetaminophen 325 Mg Tablet) 650 mg PO Q4H PRN PRN Reason: Mild Pain (1-3) or Fever Al Hydrox/Mg Hydrox/Simethicone (Mag Hydrox/Al Hydrox/Simeth 30 Ml Udc) 30 ml PO QID PRN PRN Reason: Dyspepsia Aspirin (Aspirin 81 Mg Chewable Tablet) 81 mg PO DAILY@0800 [facility] Last Admin: 01/30/23 08:12 Dose: 81 mg Atorvastatin Calcium (Atorvastatin 40 Mg Tablet) 40 mg PO DAILY [facility] Last Admin: 01/30/23 05:32 Dose: 40 mg Heparin Sodium (Porcine) (Heparin Sodium 5,000 Units/Ml Vial) 3,500 units IV PUSH PRN PRN PRN Reason: aPTT 55 - 70 seconds Heparin Sodium (Porcine) (Heparin Sodium 5,000 Units/Ml Vial) 4,000 units IV PUSH PRN PRN PRN Reason: aPTT less than 55 seconds Heparin Sodium/Dextrose (Heparin Sodium/D5w 100 Units/Ml) 25,000 units in 250 mls @ 10 mls/hr IV CONT .Q24H [facility]; Protocol Last Admin: 01/30/23 02:59 Dose: 1,000 units/hr, 10 mls/hr Metoprolol Tartrate (Metoprolol Tartrate 12.5 Mg Tablet) 12.5 mg PO Q12HR [facility] Last Admin: 01/30/23 09:43 Dose: 12.5 mg Morphine Sulfate (Morphine Sulfate (*Crx) 2 Mg/Ml Inj) 2 mg IV PUSH Q5M PRN PRN Reason: Pain Rated 4-6 Ondansetron HCl (Ondansetron Inj 4 Mg/2 Ml Vial) 4 mg IV PUSH Q4H PRN PRN Reason: Nausea Perflutren Lipid Microsphere (Perflutren Lipid Microspheres 1.5 Ml Vial Diluted To 10 Ml Total Volume) 0 ml IV PUSH ONCE PRN; Protocol PRN Reason: adequate visualization Stop: 02/02/23 08:04 Sedation/Anesthesia: No previous sedation/anesthesia problems (including family history). [facility] Past Medical History Medical History COVID-19 Essential thrombocytosis External hemorrhoid Finger fracture, right GERD (gastroesophageal reflux disease) History of esophageal stricture History of rectal polyps HLD (hyperlipidemia) HTN (hypertension) Internal hemorrhoids Nasal fracture NICOLE (obstructive sleep apnea) Surgical History Surgical History Hx of tonsillectomy Family History Family History Father Hypertension Acute myocardial infarction at age greater than 70 Mother Carcinoma of colon Social History Social History Social History: The patient lives in [place] with his of 29 years. he is retired from the [employer] after 20 years. 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 Smoking status: Never smoker Second hand tobacco smoke exposure: No Alcohol intake: current Drinks per week: 2 Alcohol use details: rare Substance use: never Substance use type: does not use Living arrangements: with family Occupation/Education: occupation Gender identity (if verbalized by the patient): Male Sexual Orientation (if Verbalized by the Patient): Straight or Heterosexual Spiritual care concerns: No Mod Sed Physical Exam Physical Exam Pre Procedural Exam: Normal: Appearance, Throat, Airway, Lungs, Heart Size, Heart Rate, Heart Rhythm, Neuro Exam and Extremities Hours since solid foods: 12 H
--- NOTE | 2023-01-30 12:05 | WPDCARDPROC ---
Cardiac Cath Procedure Note Date of procedure:: 01/30/23 Performing physician:: Edgar Colon MD Indication:: acute coronary syndrome Brief clinical history:: this is a 57-year-old man without a history of coronary disease. He presented the hospital with an episode of spontaneous chest pain last night in the emergency room symptoms were alleviated with nitrates. The patient's troponin level did rise moderately. He has ECG demonstrating sinus rhythm with right bundle branch block QRS morphology but no acute ST segment deviation. Procedure Procedure performed:: Left ventriculogram coronary angiogram extraction thrombectomy using penumbra Sedation/Medication given:: fentanyl 50 mg Versed 2 mg case start time 11:02 a.m. case end time 11:46 a.m. sedation provided by Adama Lozano RN, trained observer Access site:: right femoral artery Estimated blood loss:: 50 cc Procedure note:: patient was brought to the sleep lab technologist in the postabsorptive state where the right femoral triangle was prepared and draped in the usual fashion. Anesthesia was provided with 1% lidocaine infiltrated locally. Using the modified Seldinger technique a 6 Moroccan sheath was placed into the right common femoral artery after this left heart catheterization took place. I used a 5 Moroccan angled pigtail catheter to measure left-sided hemodynamics and to inject LV g in the are AO projection. Following this I injected the left coronary artery in multiple projections using standard 5 Moroccan FL4 catheter. The right coronary artery was injected using a standard JR4 catheter. The cineangiograms were then reviewed. Following this I recommended and performed extraction thrombectomy in the proximal LAD using the penumbra device. The patient had been given a loading dose of aspirin in the emergency room he was given 180 mg of Brilinta in the sleep lab technologist and then started on intracoronary bolus of Integrilin and intravenous infusion of Integrilin. Following this the sheath was sutured into position the patient was taken to the ICU for post procedure recovery. And very close observation Findings:: hemodynamics: Central aortic pressure is 108 over 66 left ventricle 108/10 end-diastolic pressure 18 there is no gradient across the aortic valve on pullback. Left ventricle: The LV is normal size the anteroapical segment is hypodynamic the remainder of the LV contracts well the global ejection fraction I would visually estimate to be 50-55% the left main coronary artery is nicely patent the left anterior descending is a large caliber artery extending down to around the apex. There is a visible filling defect in the proximal LAD representing a LAD thrombus. There is no evidence of atherosclerosis in the LAD however. The circumflex is a medium caliber artery giving rise to the marginal branch. The circumflex system is somewhat tortuous but smooth and angiographically normal in appearance the right coronary artery is large caliber and dominant to the posterior circulation the right coronary artery is also smooth and angiographically normal in appearance. Intervention: The left coronary was engaged using a CLS 3.5 guiding catheter I used a 0.014 BMW coronary guidewire advancing into the distal LAD. This did not disrupt her dislodge any of the visible thrombus proximally. Then I used the penumbra device and made a total of 7 passes in the proximal LAD. There was angiographically somewhat more brisk antegrade flow following this but there was still visible filling defect/ thrombus in the LAD. Following this I elected to administer a bolus of intracoronary Integrilin followed by starting intra venous Integrilin infusion. The patient was taken to the ICU for post procedure recovery in very close observation given location of this LAD thrombus. It was my impression this was a thrombus related to essential thrombocythemia since there is no visible atheroscleros
--- NOTE | 2023-01-30 12:32 | PC.NURSE ---
Patient arrived to ICU room 9 at 1223. This RN to resume care.
[2023-01-30] MEDS: SODIUM CHLORIDE 0.9% IV 1,000 ML 125 ML IV CONT (13:05)
[2023-01-30] MEDS: EPTIFIBATIDE 0.75 MG/ML 75 MG/100 ML VIAL 17.66 MG IV CONT ×3 (13:06→20:14)
--- NOTE | 2023-01-30 13:51 | WPDCNINT ---
Assessment and Plan Assessment and plan (1) NSTEMI (non-ST elevated myocardial infarction): Code(s): I21.4 - Non-ST elevation (NSTEMI) myocardial infarction Status: Acute Assessment and Plan: 01/30 early hours: Patient presented with chest pain with radiation to the left shoulder and left arm, diagnosed with NSTEMI will start heparin infusion. He was taken to the cardiac manufacturing lab technician for angiogram which revealed a filling defect compatible with thrombus in the proximal LAD, status post extraction thrombectomy with penumbra device. Patient was given a loading dose of aspirin along with Brilinta 180 mg in the manufacturing lab technician. He was started on intracoronary bolus of Integrilin and intravenous infusion of Integrilin. Patient was transferred to the ICU for Integrilin infusion -EF was 50-55% -discuss with career development director -continue aspirin, statin, metoprolol, Brilinta, (2) Pure hypercholesterolemia: Code(s): E78.00 - Pure hypercholesterolemia, unspecified Status: Acute Assessment and Plan: Continue statin (3) Essential hypertension: Code(s): I10 - Essential (primary) hypertension Status: Acute Assessment and Plan: Continue metoprolol (4) Essential thrombocytosis: Code(s): D47.3 - Essential (hemorrhagic) thrombocythemia Status: Acute Assessment and Plan: Continue aspirin 81 mg for now -patient may have to be evaluated by surveyor geodetic/ (5) Gastro-esophageal reflux disease without esophagitis: Code(s): K21.9 - Gastro-esophageal reflux disease without esophagitis Status: Acute Assessment and Plan: Continue Protonix Plan DVT prophylaxis: On Integrilin infusion Stress ulcer prophylaxis: Protonix Nutrition: Heart healthy diet Code Status: Full code Critical Care Time Spent: 46 minutes Due to a high probability of clinically significant, life threatening deterioration, the patient required my highest level of preparedness to intervene emergently and I personally spent this critical care time directly and personally managing the patient. This critical care time included obtaining a history; examining the patient; pulse oximetry; ordering and review of studies; arranging urgent treatment with development of a management plan; evaluation of patient's response to treatment; frequent reassessment; and discussions with other providers. It was exclusive of separately billable procedures and treating other patients and teaching time. Please see Assessment and Plan section and the rest of the note for further information on patient assessment and treatment This dictation may have been done utilizing a voice recognition system. Attempts have been made to correct errors. However, there may be uncorrected grammatical, spelling, and recognitions errors present. Senior Qualitative Researcher Consult Note Consult date: 01/30/23 Reason for consult: NSTEMI HPI: Derik Waldrop is a 57 year old male essential thrombocytosis, GERD, hyperlipidemia, essential hypertension, obstructive sleep apnea, history of COVID-19 presented the ED on early hours of 01/30/2023 with complains of chest pain that has started but 3 hours prior to arrival to the ER. He complained of substernal chest pain that radiated to his left arm and shoulder, complained of some shortness of breath, denies any nausea vomiting. He denies any diaphoresis or palpitations. Chest pain resolved in the ED with nitroglycerin. Was started on heparin infusion and transferred to intermediate Unit for further management. 01/30: Morning patient was taken to the cardiac manufacturing lab technician for coronary angiogram which revealed of filling defect compatible with thrombus in the proximal LAD, status post extraction thrombectomy with penumbra device. Patient was given a loading dose of aspirin along with 180 mg of Brilinta in the manufacturing lab technician. He was started on intracoronary bolus of Integrilin and intravenous infusion of Integrilin. Patient patient was trans
[2023-01-30] MEDS: ALBUTEROL SULFATE (*SP) AEROSOL 1 PUFF 2 PUFF INHALATION (14:10)
--- NOTE | 2023-01-30 16:02 | ADMGEN ---
This patient, Derik Waldrop, was admitted to Intensive Care Unit-9 at 1223 from cardiac laborer airport maintenance. Patient/family oriented to hospital policies and general routines including ID bracelet, bed and alarms, visiting hours, pain management, procedures, bathroom and other care routines, personal items, smoking policy, room service/diet, and visiting hours. Information on how to activate the Rapid Response Team has been discussed. Patient/Family are encouraged to report perceived risks to care and to ask questions if they do not understand what they are told or what they should do.
[2023-01-30] MEDS: TICAGRELOR 90 MG TABLET PO (20:14)
--- NOTE | 2023-01-30 20:26 | PC.NURSE ---
Cardiopulmonary Rehab Services flyer was given to patient.
[2023-01-31] VITALS (14 sets, daily range): BP systolic 110–132; BP diastolic 59–75; PULSE 69–90; RESP 11–18; TEMP 36.1–37.1; O2SAT 92–98
--- NOTE | 2023-01-31 | ECHO_ITS ---
Patient Info Name: Derik Waldrop Age: 57 years : 1965 Gender: Male Ht: 71 in Wt: 243 lbs BSA: 2.39 m2 HR: 86 bpm BP: 128 / 69 mmHg Heart Rhythm: Sinus Rhythm Technical Quality: Fair Exam Date: 01/31/2023 11:44 AM Exam Location: [facility] Patient Status: Inpatient Admit Date: 01/30/2023 Staff Ordering Physician: Jame Gibbons DO Mopper: Susan Abdalla RDCS Attending Provider: Angel Kearns MD Referring Physician: Shai HAYDEN; Exam Type: CA echo dop color flow w con Study Info Indications - NSTEMI Complete two-dimensional, color flow and Doppler transthoracic echocardiogram is performed with contrast to opacify the left ventricle and to improve the deliniation of the left ventricle endocardial borders. Contrast/Agitated Saline Contrast/Ag. Saline: Definity Amount: 2.00 ml Administered By: Susan Abdalla RDCS Existing IV Access: Yes IV Access Condition: patent with no signs of infiltration Summary 1. Left ventricular chamber dimension is normal. 2. Left ventricular systolic function is normal, estimated at 55-60%. 3. There is no increased left ventricular wall thickness. 4. The left ventricular diastolic function is normal. 5. Right ventricular chamber dimension is mildly enlarged. 6. Right ventricular systolic function is reduced. 7. Left atrial chamber dimension is mildly enlarged. 8. There is mild mitral valve regurgitation. 9. There is mild tricuspid valve regurgitation. Left Ventricle Left ventricular chamber dimension is normal. Left ventricular systolic function is normal, estimated at 55-60%. There is no increased left ventricular wall thickness. The left ventricular diastolic function is normal. Right Ventricle Right ventricular chamber dimension is mildly enlarged. Right ventricular systolic function is reduced. Left Atria Left atrial chamber dimension is mildly enlarged. Right Atria Right atrial chamber dimension is normal. Atrial Septum Intact interatrial septum visualized by color flow imaging. Aortic Valve The aortic valve is trileaflet. There is mild aortic valve sclerosis. There is no aortic valve stenosis. There is trace aortic valve regurgitation. Pulmonic Valve The pulmonic valve is normal. There is no pulmonic valve stenosis. There is trace pulmonic regurgitation. Mitral Valve The mitral valve has normal leaflets. There is no mitral valve stenosis. There is mild mitral valve regurgitation. Tricuspid Valve The tricuspid valve leaflets are normal. There is no significant tricuspid valve stenosis. There is mild tricuspid valve regurgitation. No pulmonary hypertension, estimated pulmonary arterial systolic pressure is 25 mmHg. Pericardium/Pleural The pericardium appears normal. There is trivial pericardial effusion. Inferior Vena Cava Normal inferior vena cava with <50% collapse upon inspiration consistent with elevated right atrial pressure, 10 mmHg. Aorta The aortic root size at the sinus of Valsalva is normal. Left Ventricular Outflow Tract Name Value Normal LVOT 2D LVOT Diameter 2.12 cm LVOT Doppler LVOT Peak Gradient 2 mmHg LV
[2023-01-31] MEDS: EPTIFIBATIDE 0.75 MG/ML 75 MG/100 ML VIAL 17.66 MG IV CONT ×2 (01:49→07:59)
[2023-01-31 04:45] LABS: Basophils Absolute Auto 0.1 K/mm3 (0.0-0.1); Basophils Percent Auto 1.5 % (0.2-1.2); Eosinophils Absolute Auto 0.6 K/mm3 (0-0.3); Eosinophils Percent Auto 6.6 % (0-4.4); Hematocrit 44.2 % (42.0-52.0); Hemoglobin 14.4 g/dL (14.0-18.0); Immature Granulocyte Absolute 0.06 K/mm3 (0.00-0.031); Immature Granulocyte Percent A 0.6 % (0-0.5); Lymphocytes Absolute Auto 1.59 K/mm3 (0.9-3.2); Mean Corpuscular HGB Conc 32.6 g/dl (32-36); Mean Corpuscular Hemoglobin 30.6 pg (26-34); Monocytes Absolute Auto 0.8 K/mm3 (0.1-0.6); Neutrophils Absolute Auto 6.1 K/mm3 (1.3-6.7); Neutrophils Percent Auto 65.3 % (45.5-73.1); Platelet Count Result 634 k/mm3 (150-375); Red Cell Distribution Width 16.1 % (11.5-14.5); White Blood Count 9.4 K/mm3 (4.5-10.0)
[2023-01-31 04:57] LABS: Alanine Aminotransferase 28 U/L (6-50); Albumin Level 3.9 g/dL (3.5-5.1); Alkaline Phosphatase 33 U/L (38-126); Anion Gap 5 mmol/L (8-16); Aspartate Amino Transferase 75 U/L (17-59); Bilirubin,Total 0.7 mg/dL (0.2-1.3); Blood Urea Nitrogen 13 mg/dL (9-20); Calcium 8.7 mg/dL (8.4-10.2); Carbon Dioxide 27 mmol/L (22-30); Chloride 104 mmol/L (98-107); Estimated CRCL calculation 92 ml/min; Estimated Glomerular Filt Rate > 60; Glucose 107 mg/dL (65-110); Magnesium 1.9 mg/dL (1.6-2.3); Phosphorus 5.3 mg/dL (2.5-4.5); Potassium 4.3 mmol/L (3.4-5.0); Sodium 136 mmol/L (137-145)
--- NOTE | 2023-01-31 05:11 | ECG_ITS ---
Measurements Intervals [place] Rate: 73 P: -1 [place]: 179 QRS: 99 QRSD: 147 T: 20 QT: 401 QTc: 442 Interpretive Statements SINUS RHYTHM RIGHT BUNDLE BRANCH BLOCK [120+ ms QRS DURATION, UPRIGHT V1, 40+ ms S IN I/aVL/V4/V5/V6] COMPARED TO ECG 01/30/2023 01:11:45 NO SIGNIFICANT CHANGES Electronically Signed On 01-31-2023 16:23:57 CDT by Joel Carrasco M.D.
[2023-01-31] MEDS: ATORVASTATIN 40 MG TABLET PO (08:00)
[2023-01-31] MEDS: METOPROLOL TARTRATE 12.5 MG TABLET PO ×2 (08:00→22:05)
[2023-01-31] MEDS: PANTOPRAZOLE 40 MG TABLET PO (08:00)
[2023-01-31] MEDS: TICAGRELOR 90 MG TABLET PO ×2 (08:00→22:05)
[2023-01-31] MEDS: ASPIRIN 81 MG CHEWABLE TABLET PO (08:00)
--- NOTE | 2023-01-31 08:01 | PM.PNCARD ---
Progress Note: A&P Assessment and Plan (1) NSTEMI (non-ST elevated myocardial infarction): Code(s): I21.4 - Non-ST elevation (NSTEMI) myocardial infarction Status: Acute Assessment and Plan: Troponin trending up 2.7, but with LHC and extraction attempt this may not be unusual to increase. CP relieved with NTG. Was on heparin drip, started Metoprolol and aspirin, and Atorvastatin. Now on Integrillin drip for 18 hours. Check EKG today and Obtain echo. Consulted [facility] for LHC. 01/30/23 Dr. Colon [facility]: Prox LAD thrombus but since no atherosclerosis seen, it was elected to attempt penumbra extraction which improved flow in LAD but clot still present at about 50% stenosis. The concern is clot may increase in size and occludes LAD. May need to re-image LAD angiogram to determine improving clot size. With clot, the thought is it is due to thrombocytosis. (2) Pure hypercholesterolemia: Code(s): E78.00 - Pure hypercholesterolemia, unspecified Status: Acute Assessment and Plan: On Atorvastatin. (3) Essential hypertension: Code(s): I10 - Essential (primary) hypertension Status: Acute Assessment and Plan: Stable. Subjective Date/time seen: 01/31/23 08:01 Interval history: He has mild left sided chest pressure. No sob. Exam Const: General: cooperative, healthy appearing and comfortable Orientation/consciousness: oriented to person, oriented to place and oriented to time Resp: Auscultation: clear to auscultation bilaterally, no crackles, no rales, no rhonchi and no wheezes Cardio: Rate: regular rate Rhythm: regular rhythm Heart sounds: no murmurs Peripheral pulses: dorsalis pedis present Neuro: General: oriented to person, oriented to place and oriented to time Extrem: Right lower extremity: no edema Left lower extremity: no edema Objective Data Vital Signs Vital Signs: Vital Signs - 24 hr 01/30/23 08:12 01/30/23 09:30 01/30/23 09:43 Temperature Pulse Rate 67 74 68 Respiratory Rate 15 12 Blood Pressure 116/66 96/62 L Pulse Oximetry 95 99 Oxygen Delivery Fraction of Inspired Oxygen 01/30/23 09:45 01/30/23 10:13 01/30/23 10:32 Temperature Pulse Rate 68 80 68 Respiratory Rate 13 15 15 Blood Pressure 115/66 110/60 110/60 Pulse Oximetry 96 99 100 Oxygen Delivery Fraction of Inspired Oxygen 01/30/23 12:23 01/30/23 12:46 01/30/23 12:46 Temperature 97.7 F Pulse Rate 62 60 Respiratory Rate 16 14 Blood Pressure 107/60 106/67 Pulse Oximetry 96 96 Oxygen Delivery Room Air Fraction of Inspired Oxygen 01/30/23 13:46 01/30/23 13:44 01/30/23 14:10 Temperature Pulse Rate 60 66 61 Respiratory Rate 18 17 16 Blood Pressure 118/71 112/71 Pulse Oximetry 98 100 Oxygen Delivery Fraction of Inspired Oxygen 01/30/23 14:12 01/30/23 13:51 01/30/23 14:21 Temperature Pulse Rate 61 60 Respiratory Rate 18 18 Blood Pressure 115/75 102/71 Pulse Oximetry 96 97 97 Oxygen Delivery Room Air Fraction of Inspired Oxygen 21 01/30/23 14:51 01/30/23 16:00 01/30/23 15:00 Temperature 97.7 F Pulse Rate 64 64 58 L Respiratory Rate 10 L 14 13 Blood Pressure 113/70 114/67 117/76 Pulse Oximetry 96 96 97 Oxygen Delivery Fraction of Inspired Oxygen 01/30/23 15:30 01/30/23 15:15 01/30/23 15:45 Temperature Pulse Rate 64 66 65 Respiratory Rate 10 L 15 15 Blood Pressure 113/70 128/67 116/65 Pulse Oximetry 96 96 96 Oxygen Delivery Fraction of Inspired Oxygen 01/30/23 16:00 01/30/23 16:00 01/30/23 14:00 Temperature 98.0 F Pulse Rate 64 61 Respiratory Rate 12 Blood Pressure 126/70 Pulse Oximetry 96 Oxygen Delivery Room Air Fraction of Inspired Oxygen 01/30/23 18:00 01/30/23 16:30 01/30/23 17:00 Temperature Pulse Rate 78 70 76 Respiratory Rate 16 17 16 Blood Pressure 127/68 122/66 120/63 Pulse Oximetry 95 96 95 Oxygen Delivery Fraction of Inspired Oxygen
--- NOTE | 2023-01-31 08:54 | WPDINTPN ---
Progress Note: A&P Assessment and Plan (1) NSTEMI (non-ST elevated myocardial infarction): Code(s): I21.4 - Non-ST elevation (NSTEMI) myocardial infarction Status: Acute Assessment and Plan: 01/30 early hours: Patient presented with chest pain with radiation to the left shoulder and left arm, diagnosed with NSTEMI will start heparin infusion. He was taken to the cardiac pathology laboratory director for angiogram which revealed a filling defect compatible with thrombus in the proximal LAD, status post extraction thrombectomy with penumbra device. Patient was given a loading dose of aspirin along with Brilinta 180 mg in the pathology laboratory director. He was started on intracoronary bolus of Integrilin and intravenous infusion of Integrilin. Patient was transferred to the ICU for Integrilin infusion -EF was 50-55% Discussed with pilates coordinator. Plan to discontinue Integrilin infusion today. Echo ordered Continue aspirin, statin, metoprolol, Brilinta, Cardiology planning to take patient back to cardiac catheterization lab in next few days Transfer out of ICU today (2) Pure hypercholesterolemia: Code(s): E78.00 - Pure hypercholesterolemia, unspecified Status: Acute Assessment and Plan: Continue statin (3) Essential hypertension: Code(s): I10 - Essential (primary) hypertension Status: Acute Assessment and Plan: Continue metoprolol (4) Essential thrombocytosis: Code(s): D47.3 - Essential (hemorrhagic) thrombocythemia Status: Acute Assessment and Plan: Currently on DAPT -patient may have to be evaluated by epic trainer (5) Gastro-esophageal reflux disease without esophagitis: Code(s): K21.9 - Gastro-esophageal reflux disease without esophagitis Status: Acute Assessment and Plan: Continue Protonix Plan DVT prophylaxis: Currently on Integrilin infusion Stress ulcer prophylaxis: Protonix Nutrition: Heart healthy diet Code Status: Full code Transfer out of ICU today Subjective Date/time seen: 01/31/23 Overnight events reviewed. Afebrile Patient's feels well than denies any complaints today. He denies any chest pain. Sheath was removed yesterday. Patient denies fever, chest pain, shortness of breath, cough, nausea vomiting, abdominal pain,, diarrhea, headache or constipation.. All other systems were reviewed and were negative Sinus Harvinder on the monitor with acceptable blood pressure. He is on room air Review of Systems Review of Systems: All systems reviewed & are unremarkable except as noted in HPI and below Exam Narrative: General: Pleasant male, in no acute distress HEENT:? Pupils equal and reactive, sclera is clear Neck:? Supple Respiratory:? Clear to auscultation bilaterally no wheezing, adequate air entry Cardiac:? S1-S2 is normal, regular rate and rhythm Abdomen:? Soft, nontender, nondistended, normoactive bowel sounds Extremities:? No edema, palpable pedal pulses, no evidence of ecchymosis or hematoma Neuro:? Patient is awake, alert, oriented x3, nonfocal, answers questions appropriately and follows simple commands in all extremities Skin:? Vomiting dry Psych:? Normal mentation and affect Objective Data Vital Signs Vital Signs: Vital Signs - 24 hr 01/30/23 09:30 01/30/23 09:43 01/30/23 09:45 Temperature Pulse Rate 74 68 68 Respiratory Rate 12 13 Blood Pressure 96/62 L 115/66 Pulse Oximetry 99 96 Oxygen Delivery Fraction of Inspired Oxygen 01/30/23 10:13 01/30/23 10:32 01/30/23 12:23 Temperature 36.5 C Pulse Rate 80 68 62 Respiratory Rate 15 15 16 Blood Pressure 110/60 110/60 107/60 Pulse Oximetry 99 100 96 Oxygen Delivery Fraction of Inspired Oxygen 01/30/23 12:46 01/30/23 12:46 01/30/23 13:46 Temperature Pulse Rate 60 60 Respiratory Rate 14 18 Blood Pressure 106/67 118/71 Pulse Oximetry 96 98 Oxygen Delivery Room Air Fraction of Inspired Oxygen 01/30/23 13:44 01/30/23 14:10 1
[2023-01-31] MEDS: ALBUTEROL SULFATE (*SP) AEROSOL 1 PUFF 2 PUFF INHALATION (10:55)
--- NOTE | 2023-01-31 11:32 | PM.IMPN ---
Progress Note: A&P Assessment and Plan (1) NSTEMI (non-ST elevated myocardial infarction): Code(s): I21.4 - Non-ST elevation (NSTEMI) myocardial infarction Status: Acute Assessment and Plan: 01/30 early hours: Patient presented with chest pain with radiation to the left shoulder and left arm, diagnosed with NSTEMI will start heparin infusion. He was taken to the cardiac manufacturing lab technician for angiogram which revealed a filling defect compatible with thrombus in the proximal LAD, status post extraction thrombectomy with penumbra device. Patient was given a loading dose of aspirin along with Brilinta 180 mg in the manufacturing lab technician. He was started on intracoronary bolus of Integrilin and intravenous infusion of Integrilin. Patient was transferred to the ICU for Integrilin infusion -EF was 50-55% Discussed with blueprint blocker. Plan to discontinue Integrilin infusion today. Echo ordered Continue aspirin, statin, metoprolol, Brilinta, Cardiology planning to take patient back to cardiac catheterization lab in next few days Transfer out of ICU today (2) Pure hypercholesterolemia: Code(s): E78.00 - Pure hypercholesterolemia, unspecified Status: Acute Assessment and Plan: Continue statin (3) Essential hypertension: Code(s): I10 - Essential (primary) hypertension Status: Acute Assessment and Plan: Continue metoprolol (4) Essential thrombocytosis: Code(s): D47.3 - Essential (hemorrhagic) thrombocythemia Status: Acute Assessment and Plan: Currently on DAPT -patient may have to be evaluated by craps manager (5) Gastro-esophageal reflux disease without esophagitis: Code(s): K21.9 - Gastro-esophageal reflux disease without esophagitis Status: Acute Assessment and Plan: Continue Protonix Plan DVT prophylaxis: Currently on Integrilin infusion Stress ulcer prophylaxis: Protonix Nutrition: Heart healthy diet Code Status: Full code Transfer out of ICU today Subjective Date/time seen: 01/31/23 11:32 Interval history: 57-year-old male with history of hypertension, hyperlipidemia, GERD presenting with chest pain and currently being treated for NSTEMI. No overnight events noted. No chest pain or shortness of breath. No nausea, vomiting or diarrhea. No fevers or chills. Review of Systems Review of Systems: 12 point review of systems was assessed and was negative except as noted in the HPI Exam Narrative: General: No acute distress, alert and oriented per baseline HEENT: Atraumatic, normocephalic, mucous membranes moist CV: Regular rate and rhythm, S1, S2 Lungs: Clear to auscultation bilaterally, no rales or crackles noted, no wheezes, good air entry Abdomen: Soft, nontender, nondistended Extremities: Normal to inspection Skin: No rashes noted, no lesions or wounds seen Psych: Euthymic, normal affect Objective Data Vital Signs Vital Signs: Vital Signs - 24 hr 01/30/23 12:23 01/30/23 12:46 01/30/23 12:46 Temperature 97.7 F Pulse Rate 62 60 Respiratory Rate 16 14 Blood Pressure 107/60 106/67 Pulse Oximetry 96 96 Oxygen Delivery Room Air Fraction of Inspired Oxygen 01/30/23 13:46 01/30/23 13:44 01/30/23 14:10 Temperature Pulse Rate 60 66 61 Respiratory Rate 18 17 16 Blood Pressure 118/71 112/71 Pulse Oximetry 98 100 Oxygen Delivery Fraction of Inspired Oxygen 01/30/23 14:12 01/30/23 13:51 01/30/23 14:21 Temperature Pulse Rate 61 60 Respiratory Rate 18 18 Blood Pressure 115/75 102/71 Pulse Oximetry 96 97 97 Oxygen Delivery Room Air Fraction of Inspired Oxygen 21 01/30/23 14:51 01/30/23 16:00 01/30/23 15:00 Temperature 97.7 F Pulse Rate 64 64 58 L Respiratory Rate 10 L 14 13 Blood Pressure 113/70 114/67 117/76 Pulse Oximetry 96 96 97 Oxygen Delivery Fraction of Inspired Oxygen 01/30/23 15:30 01/30/23 15:15 01/30/23 15:45 Temperature Pulse Rate
[2023-01-31] MEDS: PERFLUTREN LIPID MICROSPHERES 1.5 ML VIAL DILUTED TO 10 ML TOTAL VOLUME IV PUSH (12:19)
--- NOTE | 2023-01-31 16:22 | IVDEFINITY ---
Prior to administration of IV Definity the patient was educated on the risks and benefits of the imaging enhancing agent including potential adverse side effects. The patient verbalized understanding. Allergies were verified. No exclusion criteria were identified and at least one of the following inclusion criteria were met: 1) physician request, 2) patient technically difficult to image (per the [place] [employer] guidelines of two or more segments not discernable within the apical view), or 3) questionable left ventricular function. ?
[2023-02-01] VITALS (9 sets, daily range): BP systolic 106–113; BP diastolic 65–72; PULSE 62–80; RESP 12–16; TEMP 36.4–36.7; O2SAT 92–96
[2023-02-01 03:54] LABS: Basophils Absolute Auto 0.1 K/mm3 (0.0-0.1); Basophils Percent Auto 1.3 % (0.2-1.2); Eosinophils Absolute Auto 0.7 K/mm3 (0-0.3); Eosinophils Percent Auto 7.9 % (0-4.4); Hematocrit 44.5 % (42.0-52.0); Hemoglobin 14.5 g/dL (14.0-18.0); Immature Granulocyte Absolute 0.08 K/mm3 (0.00-0.031); Immature Granulocyte Percent A 0.9 % (0-0.5); Lymphocytes Absolute Auto 1.79 K/mm3 (0.9-3.2); Lymphocytes Percent Auto 21.2 % (18.3-44.2); Mean Corpuscular HGB Conc 32.6 g/dl (32-36); Mean Corpuscular Hemoglobin 30.7 pg (26-34); Mean Corpuscular Volume 94.3 fl (80-100); Mean Platelet Volume 9.3 fl (7.4-10.4); Monocytes Absolute Auto 0.6 K/mm3 (0.1-0.6); Monocytes Percent Auto 7.6 % (2.6-8.5); Neutrophils Absolute Auto 5.1 K/mm3 (1.3-6.7); Neutrophils Percent Auto 61.1 % (45.5-73.1); Platelet Count Result 597 k/mm3 (150-375); Red Blood Count 4.72 M/mm3 (4.6-6.20); Red Cell Distribution Width 15.9 % (11.5-14.5); White Blood Count 8.4 K/mm3 (4.5-10.0)
[2023-02-01 04:10] LABS: Alanine Aminotransferase 36 U/L (6-50); Alkaline Phosphatase 33 U/L (38-126); Anion Gap 7 mmol/L (8-16); Aspartate Amino Transferase 61 U/L (17-59); Bilirubin,Total 0.9 mg/dL (0.2-1.3); Blood Urea Nitrogen 13 mg/dL (9-20); Calcium 8.7 mg/dL (8.4-10.2); Carbon Dioxide 25 mmol/L (22-30); Chloride 104 mmol/L (98-107); Estimated CRCL calculation 92 ml/min; Estimated Glomerular Filt Rate > 60; Glucose 101 mg/dL (65-110); Potassium 3.8 mmol/L (3.4-5.0); Sodium 136 mmol/L (137-145)
--- NOTE | 2023-02-01 06:35 | ECG_ITS ---
Measurements Intervals [place] Rate: 69 P: -10 FL: 187 QRS: 111 QRSD: 153 T: -1 QT: 413 QTc: 445 Interpretive Statements SINUS RHYTHM MARKED RIGHT AXIS DEVIATION [QRS AXIS > 100] RIGHT BUNDLE BRANCH BLOCK [120+ ms QRS DURATION, UPRIGHT V1, 40+ ms S IN I/aVL/V4/V5/V6] ABNORMAL ECG Electronically Signed On 02-01-2023 10:34:29 CDT by Johny Jenkins M.D.
--- NOTE | 2023-02-01 07:59 | PM.PNCARD ---
Progress Note: A&P Assessment and Plan (1) NSTEMI (non-ST elevated myocardial infarction): Code(s): I21.4 - Non-ST elevation (NSTEMI) myocardial infarction Status: Acute Assessment and Plan: Troponin peaked at 2.7. Was on heparin drip, started Metoprolol and aspirin, and Atorvastatin. Was on Integrillin drip for 18 hours. 01/31/23 Echo: 55-60%, mild RVE/RV hypokinesis, mild LAE, mild MR/TR. Consulted [place] for LHC. 01/30/23 Dr. Colon LHC: Prox LAD thrombus but since no atherosclerosis seen, it was elected to attempt penumbra extraction which improved flow in LAD but clot still present at about 50% stenosis. The concern is clot may increase in size and occludes LAD. May need to re-image LAD angiogram to determine improving clot size. With clot, the thought is it is due to thrombocytosis. On Brilinta, aspirin, Atorvastatin, Metoprolol. May transfer out of ICU. Will discuss with Dr. Colon if he wants his coronaries re-imaged while in hospital or as outpatient. (2) Pure hypercholesterolemia: Code(s): E78.00 - Pure hypercholesterolemia, unspecified Status: Acute Assessment and Plan: On Atorvastatin. (3) Essential hypertension: Code(s): I10 - Essential (primary) hypertension Status: Acute Assessment and Plan: Stable. Subjective Date/time seen: 02/01/23 07:59 Interval history: Reports his chest pain has resolved. No sob. Exam Const: General: cooperative, healthy appearing and comfortable Orientation/consciousness: oriented to person, oriented to place and oriented to time Resp: Auscultation: clear to auscultation bilaterally, no crackles, no rales, no rhonchi and no wheezes Cardio: Rate: regular rate Rhythm: regular rhythm Heart sounds: no murmurs Peripheral pulses: dorsalis pedis present Neuro: General: oriented to person, oriented to place and oriented to time Extrem: Right lower extremity: no edema Left lower extremity: no edema Objective Data Vital Signs Vital Signs: Vital Signs - 24 hr 01/31/23 08:00 01/31/23 10:56 01/31/23 08:00 Temperature Pulse Rate 87 71 86 Respiratory Rate 16 Blood Pressure Pulse Oximetry Oxygen Delivery Fraction of Inspired Oxygen 01/31/23 08:00 01/31/23 08:00 01/31/23 10:00 Temperature 97.7 F Pulse Rate 86 86 81 Respiratory Rate 15 15 Blood Pressure 114/70 Pulse Oximetry 92 92 Oxygen Delivery Room Air Fraction of Inspired Oxygen 01/31/23 10:00 01/31/23 12:00 01/31/23 12:00 Temperature Pulse Rate 81 74 74 Respiratory Rate 15 12 Blood Pressure 126/69 Pulse Oximetry 94 93 Oxygen Delivery Room Air Fraction of Inspired Oxygen 01/31/23 12:00 01/31/23 14:00 01/31/23 14:00 Temperature 97.9 F Pulse Rate 74 90 90 Respiratory Rate 12 18 Blood Pressure 113/65 127/62 Pulse Oximetry 93 94 Oxygen Delivery Fraction of Inspired Oxygen 01/31/23 16:00 01/31/23 16:00 01/31/23 16:00 Temperature 98.3 F Pulse Rate 77 77 77 Respiratory Rate 17 17 Blood Pressure 118/59 L 118/59 L Pulse Oximetry 93 93 Oxygen Delivery Fraction of Inspired Oxygen 01/31/23 16:00 01/31/23 18:00 01/31/23 20:00 Temperature Pulse Rate 77 88 76 Respiratory Rate 17 Blood Pressure Pulse Oximetry 93 Oxygen Delivery Room Air Fraction of Inspired Oxygen 01/31/23 20:00 01/31/23 20:00 01/31/23 22:00 Temperature 98.8 F Pulse Rate 88 75 72 Respiratory Rate 17 16 Blood Pressure 132/74 Pulse Oximetry 93 93 Oxygen Delivery Room Air Fraction of Inspired Oxygen 02/01/23 00:00 02/01/23 00:00 02/01/23 02:00 Temperature Pulse Rate 72 72 62 Respiratory Rate 16 Blood Pressure Pulse Oximetry 93 Oxygen Delivery Room Air Fraction of Inspired Oxygen 21 02/01/23 04:00 02/01/23 00:00 02/01/23 04:00 Temperature 97.8 F 98 F Pulse Rate 62 80 62 Respiratory Rate 16 15 12 Blood Pressure 108/65 106/67 Pulse Oximetry 9
[2023-02-01] MEDS: ASPIRIN 81 MG CHEWABLE TABLET PO (08:42)
[2023-02-01] MEDS: METOPROLOL TARTRATE 12.5 MG TABLET PO (08:42)
[2023-02-01] MEDS: TICAGRELOR 90 MG TABLET PO (08:42)
[2023-02-01] MEDS: ATORVASTATIN 40 MG TABLET PO (08:42)
[2023-02-01] MEDS: PANTOPRAZOLE 40 MG TABLET PO (08:42)
--- NOTE | 2023-02-01 13:41 | PM.DS ---
DS: Admitting Diagnosis Discharge Date 02/01/23 Admitting Diagnosis Chest pain DS: Discharge Diagnosis Discharge Diagnosis (1) NSTEMI (non-ST elevated myocardial infarction): Code(s): I21.4 - Non-ST elevation (NSTEMI) myocardial infarction Status: Acute (2) Pure hypercholesterolemia: Code(s): E78.00 - Pure hypercholesterolemia, unspecified Status: Acute (3) Essential hypertension: Code(s): I10 - Essential (primary) hypertension Status: Acute (4) Essential thrombocytosis: Code(s): D47.3 - Essential (hemorrhagic) thrombocythemia Status: Acute (5) Gastro-esophageal reflux disease without esophagitis: Code(s): K21.9 - Gastro-esophageal reflux disease without esophagitis Status: Acute DS: Summary Hospital Course Reason for hospitalization: 57yo male with HTn and HLD here for chest pain. Please see H&P for details. Hospital Course: Patient presented with chest pain with radiation to the left shoulder and left arm. EKG showing NSR, right BBB. Troponin peaked at 2.7. He was diagnosed with NSTEMI. Heparin drip started. He was taken to the cardiac minilab operator for angiogram which revealed a filling defect compatible with thrombus in the proximal LAD, status post extraction thrombectomy with penumbra device.?Penumbra extraction which improved flow in LAD but clot still present at about 50% stenosis. Patient was given a loading dose of aspirin along with Brilinta 180 mg in the minilab operator.? He was started on intracoronary bolus of Integrilin and intravenous infusion of Integrilin.? Patient was transferred to the ICU for Integrilin infusion. Echo showing EF 50-55%. Discussion about patient returning to the minilab operator but since patient was doing well clinically, that he would not need a repeat catheterization. Plan for aggressive medical management. Patient overall did well and was able to be discharged home on 02/01/23 Status at Discharge Cognitive/behavioral status at discharge: Stable Time Spent with Patient Time attestation: Total time spent providing and/or coordinating discharge services: 36 minutes Time spent: Greater than 30 minutes Exam Narrative: AF 98.0 108/70 66 12 92% ra Gen - NARD Chest - CTA bilaterally, nml RR CV - RRR S1/S2. Tele showing no significant dysrhythmias Abd - Soft, NT/ND, Positive BS Ext - No pedal edema Psych - Nml mood and affect Skin - Warm and dry DS: Data Data Completed and Pending Labs on day of discharge: Labs from last 24 hours 02/01/23 02/01/23 03:36 03:32 WBC 8.4 RBC 4.72 Hgb 14.5 Hct 44.5 MCV 94.3 MCH 30.7 MCHC 32.6 RDW 15.9 H Plt Count 597 H MPV 9.3 Immature Gran % (Auto) 0.9 H Neut % (Auto) 61.1 Lymph % (Auto) 21.2 [place] % (Auto) 7.6 Eos % (Auto) 7.9 H Baso % (Auto) 1.3 H Lymph # (Auto) 1.79 [place] # (Auto) 0.6 Eos # (Auto) 0.7 H Baso # (Auto) 0.1 Abs Immat Gran (auto) 0.08 H Absolute Neuts (auto) 5.1 Absolute Nucleated RBC 0.0 Nucleated RBC % 0.0 Sodium 136 L Potassium 3.8 Chloride 104 Carbon Dioxide 25 Anion Gap 7 L BUN 13 Creatinine 1.00 Estim Creat Clear Calc 92 Estimated GFR > 60 Glucose 101 Calcium 8.7 Total Bilirubin 0.9 AST 61 H ALT 36 Alkaline Phosphatase 33 L Troponin I 1.080 H* Total Protein 7.0 Albumin 4.0 Discharge Plan Discharge Attending physician on discharge: Petros Lee Consulting providers: Jame Gibbons; Edgar Colon Discharging Clinician: Petros Lee Anticipated Discharge Date/Time: 02/01/23 13:55 Patient Disposition: Home, Self-Care Activity: other - see discharge instructions Diet: heart healthy Discharge Instructions: [id number]
== END 2023-02-01 15:00 | disposition home or self-care (01) | DRG 251 ==
LOC: ANHED 01:26 → ANHIMU 03:27 → ANHICU 12:56
PROVIDERS: Internal Medicine Cardiovascular Disease; Specialist; Student in an Organized Health Care Education/Training Program; Admitting Provider Family Medicine; Emergency Provider Emergency Medicine; PCP Family Medicine; Visit Provider Internal Medicine
PROC: 4A023N7 Measurement of Cardiac Sampling and Pressure, Left Heart, Percutaneous Approach (ICD-10-PCS; CPT 93452; principal; 2023-01-30 13:30)
PROC: 4A023N7 Measurement of Cardiac Sampling and Pressure, Left Heart, Percutaneous Approach (ICD-10-PCS; CPT 92973; 2023-01-30 13:30)
DX: I21.4 Non-ST elevation (NSTEMI) myocardial infarction (principal); D47.3 Essential (hemorrhagic) thrombocythemia; D75.839 Thrombocytosis, unspecified; E78.00 Pure hypercholesterolemia, unspecified; G47.33 Obstructive sleep apnea (adult) (pediatric); I10 Essential (primary) hypertension; I45.10 Unspecified right bundle-branch block; J45.20 Mild intermittent asthma, uncomplicated; K21.9 Gastro-esophageal reflux disease without esophagitis; K22.2 Esophageal obstruction; Z86.16 Personal history of COVID-19
CPT/HCPCS: 36415; 71046; 80053; 83690; 83735; 84100; 84484; 85025; 85610; 85730; 92973; 93005; 93458; 94640; 96374; 99291; A9270; C1757; C1769; C1887; C1894; C8929; J0461; J0583; J1327; J1644; J2250; J3010; J7030; J7040; Q9957

== ENCOUNTER 2023-05-02 09:50 | Outpatient (CLI) | payer OTHER, SELFPAY ==
[2023-05-02 10:41] LABS: Alanine Aminotransferase 25 U/L (6-50); Albumin Level 4.5 g/dL (3.5-5.1); Alkaline Phosphatase 47 U/L (38-126); Anion Gap 9 mmol/L (8-16); Aspartate Amino Transferase 40 U/L (17-59); Bilirubin,Total 0.9 mg/dL (0.2-1.3); Blood Urea Nitrogen 14 mg/dL (9-20); Calcium 8.9 mg/dL (8.4-10.2); Carbon Dioxide 26 mmol/L (22-30); Chloride 106 mmol/L (98-107); Cholesterol 148 mg/dL (0-200); Estimated Glomerular Filt Rate > 60; Glucose 103 mg/dL (65-110); HDL Direct 48 mg/dL; Potassium 3.8 mmol/L (3.4-5.0); Sodium 141 mmol/L (137-145); Triglycerides 142 mg/dL (<150)
[2023-05-02 10:52] LABS: LDL Cholesterol Direct 69 mg/dL
== END 2023-05-02 09:51 | disposition home or self-care (01) ==
LOC: ANHLAB 09:51
PROVIDERS: PCP Family Medicine; Visit Provider Internal Medicine Cardiovascular Disease
DX: E78.00 Pure hypercholesterolemia, unspecified (principal)
CPT/HCPCS: 36415; 80053; 80061

== ENCOUNTER 2023-05-03 08:06 | Outpatient (CLI) | payer OTHER, SELFPAY ==
--- NOTE | ~2023-05-03 | NM_ITS ---
EXAMINATION: NM stress w perf spect multi DATE: 05/03/2023 10:43 INDICATION: Acute coronary thrombosis. TECHNIQUE: Rest images were obtained following intravenous administration of 11 mCi Tc99m tetrofosmin (Myoview). The patient performed an exercise activity. At peak exercise, 34.77 mCi Tc99m tetrofosmin (Myoview) was administered intravenously, and supine and prone stress images were obtained. Data was reconstructed into short axis and horizontal and vertical long axis SPECT images. Gated SPECT images were also obtained. COMPARISON: Chest CT 07/21/2021 FINDINGS: There is a small, mild, fixed perfusion defect involving mid inferior segment of left ventr icle, consistent with infarct. No reversible component to suggest ischemia. There is no segmental wal l motion abnormality. Left ventricular ejection fraction measures 59%. IMPRESSION: 1. Small area of mild infarct involving mid inferior segment of left ventricle. 2. Normal left ventricular ejection fraction measuring 59%. Reviewed, dictated and finalized at location A. [employer]
--- NOTE | 2023-05-03 08:14 | EST_ITS ---
Patient Info Name: Derik Waldrop Age: 57 years : 1965 Gender: Male Ht: 71 in Wt: 235 lbs BSA: 2.34 m2 HR: 64 bpm BP: 123 / 76 mmHg Exam Date: 05/03/2023 9:03 AM Exam Location: [facility] Patient Status: Outpatient Admit Date: 05/03/2023 Staff Ordering Physician: Jame Gibbons DO Attending Provider: Jame Gibbons DO Exercise Technologist: Susan Abdalla RDCS Exercise Physician: Jame Gibbons DO Exam Type: CA stress test treadmill w NM Study Info A nuclear stress test was performed. Summary 1. 1. Negative Jarred exercise stress test for ischemic ST changes by ECG criteria. 2. 2. Good functional capacity, achieving 10 METs of workload. 3. 3. Hypertensive response to exercise. 4. 4. Appropriate HR response to exercise. 5. 5. Appropriate HR recovery at 1 minute post exercise. 6. 6. Nuclear scan to follow and will be reported separately. Please correlate with it. 7. 7. Patient informed of the above results. Protocol: Jarred Stress ECG Details Stage: REST Duration (min): 1 min : 5 sec Speed (mph): 0.0 Grade (%): 0 HR (bpm): 64 SBP (mmHg): 123 DBP (mmHg): 76 METS: --- Stage: REST Duration (min): 4 min : 19 sec Speed (mph): 0.0 Grade (%): 0 HR (bpm): 70 SBP (mmHg): 123 DBP (mmHg): 76 METS: --- Stage: STAGE 1 Duration (min): 1 min : 0 sec Speed (mph): 1.7 Grade (%): 10 HR (bpm): 87 SBP (mmHg): 123 DBP (mmHg): 76 METS: --- Stage: STAGE 1 Duration (min): 2 min : 0 sec Speed (mph): 1.7 Grade (%): 10 HR (bpm): 100 SBP (mmHg): 123 DBP (mmHg): 76 METS: --- Stage: STAGE 1 Duration (min): 3 min : 0 sec Speed (mph): 1.7 Grade (%): 10 HR (bpm): 101 SBP (mmHg): 168 DBP (mmHg): 82 METS: --- Stage: STAGE 2 Duration (min): 1 min : 0 sec Speed (mph): 2.5 Grade (%): 12 HR (bpm): 111 SBP (mmHg): 168 DBP (mmHg): 82 METS: --- Stage: STAGE 2 Duration (min): 2 min : 0 sec Speed (mph): 2.5 Grade (%): 12 HR (bpm): 117 SBP (mmHg): 190 DBP (mmHg): 85 METS: --- Stage: STAGE 2 Duration (min): 3 min : 0 sec Speed (mph): 2.5 Grade (%): 12 HR (bpm): 122 SBP (mmHg): 190 DBP (mmHg): 85 METS: --- Stage: STAGE 3 Duration (min): 1 min : 0 sec Speed (mph): 3.4 Grade (%): 14 HR (bpm): 133 SBP (mmHg): 189 DBP (mmHg): 64 METS: --- Stage: STAGE 3 Duration (min): 2 min : 0 sec Speed (mph): 3.4 Grade (%): 14 HR (bpm): 137 SBP (mmHg): 189 DBP (mmHg): 64 METS: --- Stage: STAGE 3 Duration (min): 2 min : 40 sec Speed (mph): 3.4 Grade (%): 14 HR (bpm): 144 SBP (mmHg): 189 DBP (mmHg): 64 METS: --- Stage: RECOVERY Duration (min): 0 min : 19 sec Speed (mph): 1.5 Grade (%): 0 HR (bpm): 140 SBP (mmHg): 258 DBP (mmHg): 90 METS: --- Stage: RECOVERY Duration (min): 1 min : 19 sec Speed (mph): 0.0 Grade (%): 0 HR (bpm): 115 SBP (mmHg): 258 DBP (mmHg):
== END 2023-05-03 08:07 | disposition home or self-care (01) ==
PROVIDERS: PCP Family Medicine; Visit Provider Internal Medicine Cardiovascular Disease
DX: I24.0 Acute coronary thrombosis not resulting in myocardial infarction (principal)
CPT/HCPCS: 78452; 93017; A9502

== ENCOUNTER 2023-06-05 00:26 | Day surgery (SDC) | payer OTHER, SELFPAY ==
[2023-06-02 12:20] VITALS: BMI 33.0
[2023-06-05] VITALS (8 sets, daily range): BP systolic 113–143; BP diastolic 67–84; PULSE 65–75; RESP 14–16; TEMP 37.1; O2SAT 93–97; BMI 32.7
[2023-06-05 09:18] LABS: Basophils Absolute Auto 0.2 K/mm3 (0.0-0.1); Eosinophils Absolute Auto 1.1 K/mm3 (0-0.3); Eosinophils Percent Auto 12.2 % (0-4.4); Hemoglobin 16.5 g/dL (14.0-18.0); Immature Granulocyte Absolute 0.05 K/mm3 (0.00-0.031); Immature Granulocyte Percent A 0.5 % (0-0.5); Lymphocytes Absolute Auto 1.63 K/mm3 (0.9-3.2); Lymphocytes Percent Auto 17.8 % (18.3-44.2); Mean Corpuscular HGB Conc 31.1 g/dl (32-36); Mean Corpuscular Hemoglobin 27.1 pg (26-34); Mean Platelet Volume 9.5 fl (7.4-10.4); Monocytes Absolute Auto 0.7 K/mm3 (0.1-0.6); Monocytes Percent Auto 7.5 % (2.6-8.5); Neutrophils Absolute Auto 5.5 K/mm3 (1.3-6.7); Platelet Count Result 690 k/mm3 (150-375); Red Blood Count 6.09 M/mm3 (4.6-6.20); Red Cell Distribution Width 19.4 % (11.5-14.5); White Blood Count 9.2 K/mm3 (4.5-10.0)
[2023-06-05 09:36] LABS: Anion Gap 8 mmol/L (8-16); Blood Urea Nitrogen 11 mg/dL (9-20); Calcium 9.1 mg/dL (8.4-10.2); Carbon Dioxide 24 mmol/L (22-30); Chloride 105 mmol/L (98-107); Estimated CRCL calculation 99 ml/min; Estimated Glomerular Filt Rate > 60; Glucose 106 mg/dL (65-110); Potassium 4.3 mmol/L (3.4-5.0); Sodium 137 mmol/L (137-145)
--- NOTE | 2023-06-05 09:58 | WPDMODSED ---
Moderate Sedation Note-Pt Data Patient Data Diagnosis: history of proximal LAD thrombus Present Complaint: this is a 57-year-old man who was found to have proximal LAD thrombus in the setting of acute coronary syndrome in January of 2023. Subsequently was diagnosis having essential thrombocythemia. He has been treated with anti-platelet therapy. 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 Patient is not having ischemic symptoms and had a nuclear stress test recently that was negative. Follow-up coronary angiography is therefore not medically indicated Procedure to be performed/Plan: left heart catheterization Allergies Allergy/AdvReac Type Severity Reaction Status Date / Time No Known Allergies Allergy Verified 06/05/23 08:56 Home Medications Medication Instructions Recorded Confirmed Type albuterol sulfate 90 mcg/actuation 2 inh inhalation Q4H PRN shortness 10/12/22 06/02/23 Rx breath activated powder inhaler of breath or wheezing #90 ea aspirin 81 mg chewable tablet 81 mg PO DAILY@0800 #30 tabs 02/01/23 06/02/23 Rx (Children's Aspirin) nitroglycerin 0.4 mg sublingual 0.4 mg sublingual Q5MIN PRN Chest 02/01/23 06/02/23 Rx tablet (Nitrostat) Pain #20 tabs atorvastatin 40 mg tablet 40 mg PO DAILY #90 tabs 03/28/23 06/02/23 Rx metoprolol tartrate 25 mg tablet 12.5 mg PO BID #90 tabs 03/28/23 06/02/23 Rx ticagrelor 90 mg tablet (Brilinta) 90 mg PO Q12HR #180 tabs 03/28/23 06/02/23 Rx pantoprazole 40 mg tablet,delayed 40 mg PO QAM #90 tabs 04/26/23 06/02/23 Rx release hydroxyurea 500 mg capsule 500 mg PO DAILY 06/02/23 06/05/23 History Current Medications: Active Medications Sodium Chloride (Normal Saline Iv) 500 mls @ 100 mls/hr IV CONT .Q5H CLAU Sedation/Anesthesia: No previous sedation/anesthesia problems (including family history). [facility] Past Medical History Medical History COVID-19 Essential thrombocytosis External hemorrhoid Finger fracture, right GERD (gastroesophageal reflux disease) History of esophageal stricture History of rectal polyps HLD (hyperlipidemia) HTN (hypertension) Internal hemorrhoids Nasal fracture NICOLE (obstructive sleep apnea) Surgical History Surgical History Hx of tonsillectomy Family History Family History Father Hypertension Acute myocardial infarction at age greater than 70 Mother Carcinoma of colon Social History Social History Social History: The patient lives in [place] with his of 29 years. he is retired from the [employer] after 20 years. 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 Smoking status: Never smoker Second hand tobacco smoke exposure: No Alcohol intake: current Drinks per week: 2 Alcohol use details: rarely Substance use: never Substance use type: does not use Lack of Transportation: No Lack of Food: Never True Current Housing: I Have Housing Concerned About Future Housing: No Difficulty Paying Gas/Electric Bills: No Difficulty Paying for Meds: No Currently Unemployed: No Education: Bachelor's Degree Difficulty w/ Childcare or Family Care: No Living arrangements: with family Occupation/Education: occupation Gender identity (if verbalized by the patient): Male Sexual Orientation (if Verbalized by the Patient): Straight or Heterosexual Spiritual care concerns: No Mod Sed Physical Exam Physical Exam Pre Procedural Exam: Normal: Appearance, Neck, Throat, Airway, Lungs, Heart Size, Heart Rate, Heart Rhythm, Neuro Exam and Extremities Hours since solid foods: 12 Hours since liquid intake: 12 Mallampati Classification: class II Internal Medicine - PN: Obj Da Vital Sig
--- NOTE | 2023-06-05 10:25 | P.PCNCC_ITS ---
Cardiac Cath Procedure Note Date of procedure:: 06/05/23 Performing physician:: Edgar Colon MD Indication:: follow-up angiogram in patient with history of LAD thrombus Brief clinical history:: this is a 57-year-old man has been found to have essential thrombocythemia. He presented to the hospital in January of 2023 with acute coronary syndrome of found to have angiographically non diseased coronary arteries but a thrombus in the proximal LAD. This was treated with extraction thrombectomy and Anti- platelet therapy. Patient is asymptomatic and doing well. Follow-up angiography is recommended by his employer as part of evaluation of fitness to return to work Procedure Procedure performed:: coronary angiography Sedation/Medication given:: fentanyl 50 mg, Versed 2 mg case start time 10:06 a.m. case end time 10:20 a.m. sedation provided by Neda Escalante RN, trained observer Access site:: right femoral artery Estimated blood loss:: 20 cc Procedure note:: patient was brought to the cardiac catheterization lab in the postabsorptive state where the right femoral triangle was prepared and draped in the normal fashion. Anesthesia was provided with 1% lidocaine infiltrated locally. Using the modified Seldinger technique the right common femoral artery was punctured and a 5 Croatian vascular sheath was placed. After this I used standard JR4 and FL4 catheters to engage and inject the right and left coronary respectively in multiple projections. The cineangiograms were reviewed and the case was terminated. An angiogram was performed the femoral artery sheath after which a 6 Croatian Angio-Seal device was deployed with a good hemostatic result. 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 Findings:: Central aortic pressure is 120/82. The left main coronary artery is widely patent the LAD is a large caliber vessel extending down to around the apex. The LAD is free of atherosclerosis smooth and angiographically normal in appearance. The proximal LAD the site of the previous thrombus is angiographically normal now there is no residual filling defect identified. . The circumflex is a large caliber artery giving rise to the marginal branches. The circumflex system is smooth and angiographically normal. The right coronary artery is large in caliber has a proximal echevarria's crook deformity but otherwise is angiographically normal. The RCA is dominant to the posterior circulation. Conclusion:: 1. Right coronary dominant circulation with no angiographic evidence of coronary artery disease 2. previously seen LAD thrombus from January of 2023 has resolved following extraction thrombectomy and anti-platelet therapy Edgar Colon MD [facility]
== END 2023-06-05 13:30 | disposition home or self-care (01) ==
PROVIDERS: PCP Family Medicine; Visit Provider Specialist
PROC: (CPT 93454; principal; 2023-06-05 10:00)
DX: Z09 Encounter for follow-up examination after completed treatment for conditions other than malignant neoplasm (principal); R93.1 Abnormal findings on diagnostic imaging of heart and coronary circulation; D47.3 Essential (hemorrhagic) thrombocythemia; K21.9 Gastro-esophageal reflux disease without esophagitis; E78.5 Hyperlipidemia, unspecified; I10 Essential (primary) hypertension; G47.33 Obstructive sleep apnea (adult) (pediatric); Z79.51 Long term (current) use of inhaled steroids; Z79.82 Long term (current) use of aspirin; Z79.01 Long term (current) use of anticoagulants; Z98.890 Other specified postprocedural states; Z86.010 Personal history of colon polyps; Z86.718 Personal history of other venous thrombosis and embolism; Z82.49 Family history of ischemic heart disease and other diseases of the circulatory system; Z80.0 Family history of malignant neoplasm of digestive organs
CPT/HCPCS: 36415; 80048; 85025; 93454; C1760; C1887; C1894; G0269; J1644; J2250; J3010; J7040

== ENCOUNTER 2023-06-13 12:14 | Outpatient (CLI) | payer OTHER, SELFPAY ==
--- NOTE | ~2023-06-13 | XR_ITS ---
Clinical Indication: Cough PA and lateral views of the chest: Comparison: 01/30/2023 Findings: The lungs are clear, without evidence of focal consolidation or pleural effusion. Cardiome diastinal silhouette is within normal limits. Bones and soft tissues are unremarkable. Impression: Normal chest. Reviewed, dictated and finalized at [facility]. [facility] Impression: Normal chest.
[2023-06-13 13:28] LABS: Influenza A QL RT-PCR Negative (Negative); Influenza B QL RT-PCR Negative (Negative); RSV RNA, RT-PCR Negative (Negative); SARS-CoV-2 RNA PCR Negative (Negative)
== END 2023-06-13 12:15 | disposition home or self-care (01) ==
LOC: ANHLAB 12:15
PROVIDERS: PCP Family Medicine; Visit Provider Physician Assistant
DX: R05.9 Cough, unspecified (principal); Z20.822 Contact with and (suspected) exposure to COVID-19
CPT/HCPCS: 71046; 87637

== ENCOUNTER 2023-09-08 12:39 | Outpatient (CLI) | payer OTHER, SELFPAY ==
[2023-09-08 13:52] LABS: Cholesterol 146 mg/dL (0-200); HDL Direct 55 mg/dL; Triglycerides 77 mg/dL (<150)
[2023-09-08 14:03] LABS: LDL Cholesterol Direct 86 mg/dL
== END 2023-09-08 12:40 | disposition home or self-care (01) ==
LOC: ANHLAB 12:40
PROVIDERS: PCP Family Medicine; Visit Provider Physician Assistant
DX: E78.00 Pure hypercholesterolemia, unspecified (principal)
CPT/HCPCS: 36415; 80061

== ENCOUNTER 2023-11-29 09:02 | Outpatient (CLI) | payer OTHER, SELFPAY ==
[2023-11-29 09:56] LABS: Alanine Aminotransferase 20 U/L (6-50); Albumin Level 4.8 g/dL (3.5-5.1); Alkaline Phosphatase 47 U/L (38-126); Anion Gap 12 mmol/L (4-12); Aspartate Amino Transferase 35 U/L (17-59); Blood Urea Nitrogen 14 mg/dL (9-20); Calcium 9.3 mg/dL (8.4-10.2); Carbon Dioxide 28 mmol/L (22-30); Chloride 98 mmol/L (98-107); Cholesterol 155 mg/dL (0-200); Estimated Glomerular Filt Rate > 60; Glucose 94 mg/dL (65-110); HDL Direct 53 mg/dL; Potassium 4.6 mmol/L (3.4-5.0); Sodium 138 mmol/L (137-145); Triglycerides 137 mg/dL (<150)
[2023-11-29 10:05] LABS: Hemoglobin A1C 5.2 % (<5.7)
[2023-11-29 10:07] LABS: LDL Cholesterol Direct 69 mg/dL
== END 2023-11-29 09:03 | disposition home or self-care (01) ==
PROVIDERS: PCP Family Medicine; Visit Provider Internal Medicine Cardiovascular Disease
DX: I24.0 Acute coronary thrombosis not resulting in myocardial infarction (principal)
CPT/HCPCS: 36415; 80053; 80061; 83036

== ENCOUNTER 2025-03-11 07:45 | Outpatient (CLI) | payer OTHER, SELFPAY ==
[2025-03-11 08:17] LABS: Hematocrit 39.3 % (42.0-52.0); Hemoglobin 13.2 g/dL (14.0-18.0); Mean Corpuscular HGB Conc 33.6 g/dl (32-36); Mean Corpuscular Hemoglobin 36.0 pg (26-34); Mean Corpuscular Volume 107.1 fl (80-100); Platelet Count Result 401 k/mm3 (150-375); Red Blood Count 3.67 M/mm3 (4.6-6.20); White Blood Count 6.5 K/mm3 (4.5-10.0)
[2025-03-11 08:42] LABS: Cholesterol 173 mg/dL (0-200); HDL Direct 56 mg/dL; Triglycerides 137 mg/dL (<150)
== END 2025-03-11 07:46 | disposition home or self-care (01) ==
LOC: ANHLAB 07:47
PROVIDERS: PCP Family Medicine; Visit Provider Physician Assistant Medical
DX: D47.3 Essential (hemorrhagic) thrombocythemia (principal); I10 Essential (primary) hypertension; E78.00 Pure hypercholesterolemia, unspecified
CPT/HCPCS: 36415; 80061; 85027